=== PATIENT | male | born 1955 | race Caucasian/White ===

== ENCOUNTER 2023-04-29 13:47 | Observation (INO) | payer BC, SELFPAY ==
[2023-04-29] VITALS (9 sets, daily range): BP systolic 150–203; BP diastolic 77–105; BMI 30.5
[2023-04-29 09:19] LABS: Glucose - Point of Care 346 mg/dl (70-99)
[2023-04-29 09:48] LABS: Glucose - Point of Care 322 mg/dl (70-99)
[2023-04-29] MEDS: NSS 1000 IV (09:48)
[2023-04-29 10:22] LABS: Venous Blood Gas B.E. 5.5 mmol/L (-4 to +4); Venous Blood Gas HCO3 33.3 mmol/L (22-27); Venous Blood Gas O2 Sat % 63.2 %; Venous Blood Gas pCO2 59 mmHg (35-48); Venous Blood Gas pH 7.36 (7.32-7.43); Venous Blood Gas pO2 36 mmHg (30-50)
[2023-04-29 10:23] LABS: % Basophils 0.8 % (0-2); % Eosinophils 2.5 % (0-6); % Immature Granulocytes 0.5 % (0-0.5); % Lymphocytes 28.9 % (20.5-51.1); % Monocytes 7.5 % (1.7-9.3); % Neutrophils 59.8 % (42.2-75.2); Absolute Basophils 0.1 10^3/uL (0-0.2); Absolute Eosinophils 0.2 10^3/uL (0-0.7); Absolute Lymphocytes 1.7 10^3/uL (1.2-3.4); Absolute Monocytes 0.5 10^3/uL (0.1-0.6); Absolute Neutrophils 3.6 10^3/uL (1.4-6.5); Hematocrit 48.6 % (39.0-52.0); Hemoglobin 16.6 g/dL (13.0-18.0); Mean Corp Hgb Conc. 34.2 g/dL (33.0-37.0); Mean Corpuscular Hgb 28.3 pg (27.0-31.0); Mean Corpuscular Volume 82.9 fL (80.0-94.0); Mean Platelet Volume 11.7 fL (7.4-10.4); Nucleated Red Blood Cells % 0 % (-); Platelet Count 122 10^3/uL (130-400); Red Blood Cell Count 5.86 10^6/uL (4.70-6.10); Red Cell Dist. Width 13.4 % (11.5-14.5)
[2023-04-29 10:33] LABS: ALT (SGPT) 26 U/L (0-50); AST (SGOT) 25 U/L (17-59); Albumin 4.6 g/dl (3.5-5.0); Alkaline Phosphatase 75 U/L (38-126); Blood Urea Nitrogen 14 mg/dl (9-20); Calcium 9.6 mg/dl (8.4-10.2); Carbon Dioxide 31 mmol/L (22-30); Chloride 97 mmol/L (98-107); Estimated Creatinine Clearance > 125 ml/min; Glucose 322 mg/dl (70-99); Potassium 4.4 mmol/L (3.5-5.1); Sodium 134 mmol/L (135-145); Total Bilirubin 1.2 mg/dl (0.2-1.3); Total Protein 7.5 g/dl (6.3-8.2); eGFR > 60.00
[2023-04-29 10:40] LABS: B-Hydroxybutyrate 0.26 mmol/L (0.02-0.27)
--- NOTE | 2023-04-29 10:40 | ED.GENMED ---
History of Present Illness
General
Chief Complaint: Blood Sugar Problem
Source: patient and spouse
Exam Limitations: none
Time Seen by Provider: 04/29/23 09:24
Nursing documentation reviewed up to this point in time: agreed with
Travel History
Have you had any contact with someone who has COVID-19?: No
Do you have any symptoms of coronavirus? Fever > 100 degrees, chills, cough, shortness of breath, sore throat, loss of taste or smell, muscle aches, or headache?: No
History of Present Illness
History of Present Illness:
67-year-old male with a past medical history of diabetes he says primarily controlled with diet and exercise who presents to the emergency room for evaluation of nausea, vomiting, dizziness and hyperglycemia. Patient reports that he has been
feeling unwell for the past 2 weeks or so. He says that last Friday he woke up with dizziness and nausea and vomiting that lasted for most of the morning. He felt some mild nausea, fatigue and was having polyuria throughout the week last week.
This morning he woke up began having nausea, vomiting, dizziness and remains severely fatigued. He has been monitoring his blood sugars over the past 24 hours and they have been ranging between 275 and 350 despite no changes in his diet.
brought him to the emergency room this morning to be assessed for symptoms. He denies any significant headache. He denies any chest pain or shortness of breath. Has not had any URI type symptoms. Denies any abdominal discomfort but he does have
nausea. No diarrhea. He denies any change in his vision or speech, focal weakness or numbness in his extremities. Denies any trauma to his head. Denies any other complaints. He currently takes no medications for his diabetes.
Review of Systems
Review of Systems
All Other Systems: ROS reviewed and negative except as documented in HPI and ROS
Constitutional: Reports fatigue; Denies fever or chills
EENT: Denies sore throat or runny nose
Respiratory: Denies cough or trouble breathing
Cardiac: Denies chest pain or palpitations
ABD/GI: Reports nausea and vomiting; Denies abdominal pain or diarrhea
: Denies dysuria or flank pain
Musculoskeletal: Denies neck pain or back pain
Neurological: Reports dizzy; Denies headache, weakness or numbness
Endocrine: Reports polyuria and polydipsia
Phy Exam
Physical Exam
Physical Exam:
General: Awake, alert, oriented x3; no acute distress
Head: Normocephalic, atraumatic
Eyes: Conjunctiva normal, EOMI; he does have rightward unidirectional nystagmus
Ears: TMs clear bilaterally
Throat: Airway intact, handling secretions, mucous membranes slightly dry
Neck: Trachea midline, supple without meningismus
Lungs: Clear to auscultation bilaterally, no wheezing, rales, rhonchi
Heart: Regular rate and rhythm, no murmurs, gallops, or rubs
Abd: Soft, non distended, nontender
Neuro: Cranial nerves intact 2 through 12, speech fluid without dysarthria or aphasia, no motor or sensory deficits in extremities
Skin: no rash
Extremities: No edema in extremities, equal pulses in all extremities
Scores
NIH Stroke Score
Level of Consciousness: 0 - Alert
LOC Questions: 0-Answers both correctly
LOC Commands: 0-Performs both correctly
Best Horizontal Gaze: 0-Normal
Visual Garcia: 0=Normal, no visual loss
Facial Palsy: 0=Normal, symmetrical
Motor - Right Arm: 0=No drift 10 seconds
Motor - Left Arm: 0=No drift 10 seconds
Motor - Right Le-No drift 5 seconds
Motor - Left Le-No drift 5 seconds
Limb Ataxia: 0-Absent
Sensation: 0-Normal
Best Language: 0-No aphasia
Dysarthria: 0-Normal
Extinction and Inattention: 0-No abnormality
Total Score:: 0
Heart Failure Risk
Heart Failure Risk Score: Not Applicable
Heart Score for Chest Pain Patients
STEMI patient?: Not applicable
Withdrawal Assessment of Alcohol
Withdrawal Assessment Completed?: Not applicable
Course
Orders/Labs/Results
Orders:
Orders
04/29/23 09:25
0.9% Sodium Chloride 1000 ml [Nss] 1,000 ml IV BOLUS
04/29/23 09:40
Acetone [B-Hydroxybutyrate] Urgent
Complete Blood Count/With Diff Urgent
Comprehensive Metabolic Panel Urgent
Venous Blood Gas Urgent
%Oxygen/Room Air: 97
04/29/23 10:29
CT Head W/o Iv Contrast Urgent
Comment:
Reason For Exam: vertigo, nausea/vomiting
04/29/23 10:34
Meclizine [Antivert] 25 mg PO NOW STA
04/29/23 10:41
Ondansetron Injectable [Zofran] 4 mg IV NOW STA
04/29/23 10:43
Ondansetron Injectable [Zofran] 4 mg .ROUTE .STK-MED ONE
04/29/23 10:48
Urinalysis Reflex To Culture Urgent
Date Specimen was Collected: 04/29/23
Time Specimen was Collected: 10:35
04/29/23 11:02
Electrocardiogram (*1) Urgent
Reason for Study: Vertigo / Dizzy
Bedside Glucose- Treatment Q1H
EKG- Treatment ONCE
HydrALAZINE [Apresoline] 10 mg IV NOW STA
Insulin Aspart [NOVOLOG vial] 5 units SC NOW STA
04/29/23 12:02
COVID-19 Antigen Urgent
Source: Nasal Swab
Hemoglobin A1c [Glycohemoglobin (HgbA1c)] Urgent
Influenza A+B Rapid Molecular Urgent
MAYRA Source: Nasal Swab
Specimen Description:
04/29/23 12:33
NEUROLOGY CONSULT Urgent
Consulting Provider: Grisel Okeefe
Was physician already notified: Yes
Abnormal Lab Results
04/29/23 04/29/23 04/29/23
09:18 09:40 09:47
Plt Count 122 L 10^3/uL
(130-400)
MPV 11.7 H fL
(7.4-10.4)
VBG pCO2 59 H mmHg
(35-48)
VBG HCO3 33.3 H mmol/L
(22-27)
Sodium 134 L mmol/L
(135-145)
Chloride 97 L mmol/L
(98-107)
Carbon Dioxide 31 H mmol/L
(22-30)
Creatinine 0.6 L mg/dL
(0.7-1.3)
Glucose 322 H mg/dl
(70-99)
POC Glucose 346 H mg/dl 322 H mg/dl
(70-99) (70-99)
04/29/23 04/29/23
11:24 12:29
Plt Count
MPV
VBG pCO2
VBG HCO3
Sodium
Chloride
Carbon Dioxide
Creatinine
Glucose
POC Glucose 331 H mg/dl 330 H mg/dl
(70-99) (70-99)
04/29/23 09:40
04/29/23 09:40
Vital Signs
Initial and Last Documented VS:
Initial Vital Signs
Temp Pulse Resp BP Pulse Ox
36.6 C 79 18 203/100 97
04/29/23 09:14 04/29/23 09:14 04/29/23 09:14 04/29/23 09:14 04/29/23 09:14
Last Documented Vital Signs
Temp Pulse Resp BP Pulse Ox
36.6 C 72 18 190/83 93
04/29/23 09:14 04/29/23 11:28 04/29/23 10:15 04/29/23 11:28 04/29/23 10:15
MDM/Problems Addressed
Differential Diagnosis Includes:
Dehydration secondary to hyperglycemia, DKA, infection (sinus, ear, viral syndrome), vertigo, stroke
MDM/Problems Addressed:
67-year-old male presents for evaluation of fatigue, dizziness, nausea/vomiting over the past 2 weeks or so. Sugars have been very high over the past 24 hours. He arrives to severely hypertensive to 200/100�denies any history of hypertension.
Vital signs otherwise normal. Accu-Chek on arrival 346. Plan to place an IV check labs including CBC and CMP. Check complete hydroxybutyrate and a VBG. Will check urinalysis. Will check viral swabs. Check CT head. Provide IV fluids,
antiemetic. He does have unidirectional nystagmus exam concerning for peripheral vertigo will treat with meclizine. Monitor closely reassess after the above.
Initial labs reviewed: CBC unremarkable, CMP shows hyperglycemia but no signs of DKA, beta hydroxybutyrate normal, VBG with essentially normal pH. Remains hyperglycemic despite fluids will dose with some low-dose insulin. He remains severely
hypertensive will treat with some hydralazine. Awaiting results of CT head.
CT head negative for any acute pathology. Blood pressure improving but not normalized now down to the 170/100. Blood glucose improving but not normalized will continue to monitor closely�will hold on additional insulin as he is insulin na�ve.
Patient still severely dizzy despite meclizine. Nausea improved with Zofran. He has nystagmus even at rest is not necessarily positional and concerned given that this is new onset and a near 68-year-old with hypertension and diabetes that this
could potentially represent posterior CVA. Case discussed with neurology for consultation. At this point will admit for continued workup and management of his hypertensive urgency, hyperglycemia and continued vertiginous symptoms. Discussed with
hospitalist for admission.
Chronic conditions affecting care:
Diabetes
Acute Exacerbation and/or Progression of Chronic Illness:
Acutely hypertensive managed as above with IV hydralazine
Acutely hyperglycemic managed as above with IV fluids and insulin
Acute Exacerbation and/or Progression of Chronic Illness: DM and HTN
*Radiology
Radiology exam reviewed: radiology read reviewed
*Pulse Oximetry
Patient hypoxic: no
*EKG
Interpreted by ED Provider?: Yes
Heart Rate: 73
Rate: normal
Rhythm: sinus
[place]: normal axis
Interval: normal interval
QRS Pattern: normal QRS
Ischemia: no ischemia
*Critical Care Note
Total Time (30-74mins, 75-104mins- exclusive of procedures): Not Applicable
Data Reviewed
Source: patient and spouse
Patient Management
Discussion with other providers: Hospitalist (Discussed with hospitalist) and Hotbed Transfer Operator (Discussed with neurology)
Escalation/DeEscalation of care consider admission/obs:
Admission indicated
ED Attending Note
-
Portions of this chart may have been created with voice recognition software.� Occasional wrong word or��sound alike� substitutions may have occurred due to the inherent limitations of voice recognition software.
Discharge Plan
Departure
Patient Disposition: Admit
Date of Disposition: 04/29/23
Time of Disposition: 12:41
Admit to doctor: Abbie
Presentation/result/management discussed w/ accepting MD/DO: Hospitalist
Discharge Problem:
Hypertensive urgency, Hyperglycemia, Vertigo
Referrals:
Jl Landin DO [Family Provider] -
Interventions
Interventions:
*Risk Screen - Suicide Last Done: 04/29/23 09:40
*General Assessment Last Done: 04/29/23 09:40
*Neglect/Abuse Screening Last Done: 04/29/23 09:40
ED- Fall Risk Assessment Last Done: 04/29/23 09:35
*ED COVID-19 Vaccine History Last Done: 04/29/23 09:40
ED- Neurological Assessment Last Done: 04/29/23 09:35
[2023-04-29] MEDS: ZOFRAN 4 MG IV (10:45)
[2023-04-29 10:58] LABS: Urine Albumin Trace (Neg - Trace); Urine Bilirubin Negative (Negative); Urine Character Clear (Clear); Urine Color Yellow; Urine Glucose Negative (Negative); Urine Ketone Negative (Negative); Urine Leukocyte Negative (Negative); Urine Nitrite Negative (Negative); Urine Occult Blood Negative (Negative); Urine Specific Gravity 1.005 (<1.030); Urine Urobilinogen Negative (Neg - 1+)
[2023-04-29] MEDS: ANTIVERT 25 MG PO (11:16)
[2023-04-29 11:26] LABS: Glucose - Point of Care 331 mg/dl (70-99)
[2023-04-29] MEDS: NOVOLOG vial 5 UNITS SC (11:27)
[2023-04-29] MEDS: APRESOLINE 10 MG IV (11:28)
[2023-04-29 12:27] LABS: COVID-19 Antigen Negative (Negative)
[2023-04-29 12:33] LABS: Glucose - Point of Care 330 mg/dl (70-99)
--- NOTE | 2023-04-29 13:37 | CON.NEURO ---
Consultation
Order
CC:
HPI: This is a 67-year-old man who presented to [facility] on April 29, 2022 with dizziness. According to the patient he developed an acute continue sensation of spinning with associated nausea/ emesis
In the spells that he developed today in the morning. No reports of change in vision, ear pain, tinnitus change in speech or headache. Mr. Pope recalls transient vertigo lasting for several hours that he had 1 week ago
ER VS: 203/100, 79, 18, afebrile.
PDMP:no Rxed meds
Labs: Glucose�322, platelets�122, unremarkable urinalysis, normal WBC.
EKG: NSR, QTc Int : [address] head-right frontal�arachnoid cyst.
PMH: Right lateral cervical melanoma, HTN, DLP, DM, vit D deficiency
PSH: Melanoma resection
SH: nonsmoker; retired; independent in ADLs
FH: Mother�laryngeal cancer
All: NKDA
ROS:Constitutional: Negative. Negative for chills, fever and unexpected weight change.
HENT: Positive for for
Eyes: Negative. Negative for photophobia, pain and visual disturbance.
Respiratory: Negative for cough, choking and shortness of breath.
Cardiovascular: Negative for chest pain, palpitations and leg swelling.
Gastrointestinal: Negative for abdominal pain and vomiting.
Endocrine: Negative. Negative for cold intolerance.
Genitourinary: Negative for dysuria, flank pain and urgency.
Musculoskeletal: Negative for back pain, gait problem, neck pain and neck stiffness.
Skin: Negative for rash.
Allergic/Immunologic: Negative. Negative for immunocompromised state.
Neurological: Positive for dizziness, distal paresthesias, leg pain
Psychiatric/Behavioral: Negative for behavioral problems, confusion and hallucinations.
General: Well developed. In no acute distress.
Cardio: Regular rate and rhythm without murmur. Extremities are without cyanosis or edema.
Neuro:
Mental Status: Alert, oriented to person, place, and date. Normal attention and recall. Good fund of knowledge. Follows complex requests across the midline. Comprehension, naming, and repetition intact. Immediate and delayed recall 3/3.
Cranial Nerves: . Pupils are equally round and reactive to light. EOMs full. Visual cuenca full to confrontation. No ptosis. Horizontal nystagmus on right lateral gaze. V1-V3 intact to light touch and pinprick bilaterally, symmetric. Face
symmetric. Normal hearing AU. The palate elevated well. SCMs and traps 5/5. Tongue midline. No dysarthria.
Motor: Normal bulk and tone. No pronator or arm drift. Strength 5/5 throughout. No clonus.
Reflexes: 2+ throughout the upper extremities and 1+ knees. 1/2 in AJs. Plantar responses flexor bilaterally.
Sensory: Normal vibration and JPS.
Coordination: No dysmetria or tremor.
Gait: deferred
Assessment and Plan:
I. Hypertensive emergency
II. Probable central vertigo
III. History of melanoma
IV. Right frontal�arachnoid cyst.
-Continue Telemetry monitoring.
-Fall precautions.
-Cautious lowering of BP by approximately 15 % during the first 24 hours is SBP >220 mmHg or diastolic blood pressure >120 mmHg;
-Restart antihypertensive medications during if BP>140/90 mmHg who are neurologically stable in 24 to 48 hours after stroke onset;
-ASA 81 mg QD
-CTA head/neck
-Brain MRI with sagar
-Please check HbA1C, LDL.
-Meclizine 25 mg every 8 hours as needed
-PT.
-DVT prophylaxis.
I personally reviewed all radiology and labs along with past medical records pertinent to current medical problems.
Thank you for allowing us to participate in the care of this patient. We will continue to follow. Please do not hesitate to contact us with any questions or concerns.
Subjective/Objective
Subjective Data
Date of Service: April 29, 2023
Objective Data
Vital Signs
Temp Pulse Resp BP Pulse Ox
36.6 C 72 18 190/83 93
04/29/23 09:14 04/29/23 11:28 04/29/23 10:15 04/29/23 11:28 04/29/23 10:15
Lab Results
04/29/23 09:40
04/29/23 09:40
Sodium 134 mmol/L (135-145) L 04/29/23 09:40
Potassium 4.4 mmol/L (3.5-5.1) 04/29/23 09:40
BUN 14 mg/dl (9-20) 04/29/23 09:40
Glucose 322 mg/dl (70-99) H 04/29/23 09:40
Calcium 9.6 mg/dl (8.4-10.2) 04/29/23 09:40
Patient Allergies
No Known Allergies Allergy (Unverified 04/29/23 09:18)
Medications
-
Home Medications
Medication Instructions Recorded
cholecalciferol (vitamin D3) 25 25 mcg PO DAILY Supplement 04/29/23
mcg (1,000 unit) tablet (Vitamin
D3)
naproxen sodium 220 mg tablet 220 mg PO Q8HPRN PRN mild pain 04/29/23
(Aleve)
vitamin B complex 1 tab PO DAILY Supplement 04/29/23
vitamin E 268 mg (400 unit) capsule 268 mg PO DAILY Supplement 04/29/23
--- NOTE | 2023-04-29 13:39 | HPS.HSE ---
Addendum entered and electronically signed by Hiren Ruiz MD 04/29/23 14:50:
#Mild thrombocytopenia
watch CBC
Original Note:
Family Physician
-
Family Physician: Jl Landin
Chief Complaint
-
dizziness, HTN
History of Present Illness
67yo M with PMHX of Skin CA, DM (controlled with diet) arthritis came with elevated BP found hyperglycemia. Also c/o persistent vertigo, started this AM. ED had no concern for acute stroke since no urgent workup started. CT head unremarkable.
SImilar episode of transient vertigo 1 week ago.
Patient started not to feel good appr 1 month ago. 2 days before admission he started to wear CBGM that showing persistent hyperglycemia in 300th. Patient previously was pretty active and worked out with weights three times a week, but lately
noticed worsening asthenia
Medical History
Past Medical History
Past Medical History: Reports Other
Additional Past Medical History:
See HPI
Past Surgical History: Reports None
Social History
Unable to obtain full social history at this time due to: Dementia
Tobacco: Non-smoker
Alcohol: None
Family History
Family History: Not pertinent
Allergies / Home Medications
Allergies reflects when Allergies were last updated in [facility].
Home Medications with original date entered in [facility]
Allergy/Medication List:
Allergies
Allergy/AdvReac Type Severity Reaction Status Date / Time
No Known Allergies Allergy Unverified 04/29/23 09:18
Home Medications
cholecalciferol (vitamin D3) 25 mcg (1,000 unit) tablet (Vitamin D3) 25 mcg PO DAILY Supplement 04/29/23
naproxen sodium 220 mg tablet (Aleve) 220 mg PO Q8HPRN PRN mild pain 04/29/23
vitamin B complex 1 tab PO DAILY Supplement 04/29/23
vitamin E 268 mg (400 unit) capsule 268 mg PO DAILY Supplement 04/29/23
Review of Systems
-
History Source: Patient
A 12 point ROS was completed and negative except as noted: Yes
Neurological: Reports See HPI
Physical Exam
Vital Signs
Vital Signs
Temp Pulse Resp BP Pulse Ox
97.8 F 72 18 190/83 93
04/29/23 09:14 04/29/23 11:28 04/29/23 10:15 04/29/23 11:28 04/29/23 10:15
Physical Exam
General: Well Developed, Well Nourished and No Apparent Distress
HEENT: NormoCephalic and Moist mucous membranes
Respiratory: Clear; No Wheezes, Rales or Rhonchi
Cardiac: S1/S2 and Regular Rhythm
GI: Soft, Non Tender and Non Distended
Musculoskeletal: No Clubbing, No Cyanosis and No Edema
Skin: Warm
Neuro: Awake, Alert, Oriented and AO x 3
Hematologic/Lymphatic: No Lymphadenopathy
Psych: Calm
Laboratory Results
-
04/29/23 09:40
04/29/23 09:40
Laboratory Results
Total Bilirubin 1.2 mg/dl (0.2-1.3) 04/29/23 09:40
AST 25 U/L (17-59) 04/29/23 09:40
ALT 26 U/L (0-50) 04/29/23 09:40
Alkaline Phosphatase 75 U/L (38-126) 04/29/23 09:40
Impression/Plan
-
A/P:
#Hypertensive emergency with hyperglycemia
Start on Nifedipine/Lisinopril low doses and target BP drop of 25-30% over the next 24h to allow permissive HTN in view of vertigo and concern for TIA/CVA
HgbA1c pending
Insulin SS, Acucchecks, DM diet
check TSH, Lipids
#Vertigo, recurrent
Unclear onset of the symptoms
ASA, statin
Neurochecks
MRI/MRA head and neck
Echo
telemetry
Neurology cosnult
DVT ppx lovenox
Full code
I have spent at least 76 min admitting the patient, reviewing results of the tests, communication to family and direct patient care
[2023-04-29 13:47] LABS: Glucose - Point of Care 270 mg/dl (70-99)
[2023-04-29 14:07] LABS: Glycohemoglobin (HgbA1c) 12.7 % (4.0-5.6)
[2023-04-29] MEDS: ASPIRIN 325 MG PO (14:18)
[2023-04-29 14:48] LABS: Glucose - Point of Care 275 mg/dl (70-99)
--- NOTE | 2023-04-29 15:00 | EDRN ---
Patient taken to room 339-1 on monitor on stretcher by cardiopulmonary technician and eeg tech.
--- NOTE | 2023-04-29 16:00 | PTCARENOTE ---
pt admitted from ED. CT and MRI immediately called for pt. this nurse assessed and completed admission prior to departure. Pt is AOx3, denies pain. NSR, LCTA B/L on RA. cont B&B last BM this AM. dexicomp on RUE. skin CDI, no edema, +PP.
[2023-04-29 16:25] LABS: INR 1.01; PT 13.1 Sec (11.4-14.6)
[2023-04-29 16:26] LABS: APTT 24.3 Sec (23.4-35.0)
[2023-04-29] MEDS: LIPITOR 80 MG PO (18:21)
[2023-04-29] MEDS: HEPARIN 5000 UNITS SC ×2 (18:21→23:52)
[2023-04-29 18:27] LABS: Glucose - Point of Care 213 mg/dl (70-99)
[2023-04-29] MEDS: NOVOLOG FLEXPEN-MODERATE RESISTANCE 3 UNITS SC (19:26)
[2023-04-29 21:44] LABS: Glucose - Point of Care 249 mg/dl (70-99)
[2023-04-30] VITALS (8 sets, daily range): BP systolic 104–157; BP diastolic 64–89; PULSE 87; O2SAT 95
[2023-04-30 06:18] LABS: % Basophils 0.5 % (0-2); % Eosinophils 1.8 % (0-6); % Immature Granulocytes 0.2 % (0-0.5); % Lymphocytes 34.4 % (20.5-51.1); % Monocytes 8.5 % (1.7-9.3); % Neutrophils 54.6 % (42.2-75.2); Absolute Eosinophils 0.1 10^3/uL (0-0.7); Absolute Lymphocytes 2.1 10^3/uL (1.2-3.4); Absolute Monocytes 0.5 10^3/uL (0.1-0.6); Absolute Neutrophils 3.3 10^3/uL (1.4-6.5); Hematocrit 44.6 % (39.0-52.0); Hemoglobin 15.2 g/dL (13.0-18.0); Mean Corp Hgb Conc. 34.1 g/dL (33.0-37.0); Mean Corpuscular Hgb 28.5 pg (27.0-31.0); Mean Corpuscular Volume 83.7 fL (80.0-94.0); Mean Platelet Volume 11.6 fL (7.4-10.4); Nucleated Red Blood Cells % 0 % (-); Platelet Count 120 10^3/uL (130-400); Red Blood Cell Count 5.33 10^6/uL (4.70-6.10); Red Cell Dist. Width 13.4 % (11.5-14.5); White Blood Cell Count 6.1 10^3/uL (4.8-10.8)
[2023-04-30 06:50] LABS: Blood Urea Nitrogen 13 mg/dl (9-20); Calcium 8.9 mg/dl (8.4-10.2); Carbon Dioxide 29 mmol/L (22-30); Chloride 102 mmol/L (98-107); Estimated Creatinine Clearance 119 ml/min; Glucose 214 mg/dl (70-99); HDL Cholesterol 31 mg/dl; LDL Cholesterol, Calculated 137 mg/dl; Magnesium 1.7 mg/dl (1.6-2.3); Potassium 3.9 mmol/L (3.5-5.1); Sodium 135 mmol/L (135-145); Total Cholesterol 211 mg/dl (50-199); Triglyceride 216 mg/dl (10-149); Very Low Density Lipoprotein 43 mg/dl (0-30); eGFR > 60.00
[2023-04-30 07:12] LABS: TSH Reflex To Free T4 1.46 uIU/ml (0.47-4.68)
--- NOTE | 2023-04-30 08:24 | W.PN.NEURO.1 ---
Documented by User: Bushra Garcia NP 04/30/23 10:45
Today's Communication / Plan
-
.
Neuro Assessment/Plan
Assessment
This is a 67-year-old man who presented to on 04/29/23 with report of dizziness.� According to the patient he developed an acute continue sensation of spinning with associated nausea/ emesis. He recalls transient vertigo lasting for several hours
that he had 1 week ago.
ER VS: 203/100, 79, 18, afebrile.
Labs: Glucose�322, platelets�122, unremarkable urinalysis, normal WBC.
CT head 04/29/23: Right frontal�arachnoid cyst.
CTA head/neck 04/29/23: No CTA evidence for high-grade stenosis or occlusion of the arterial vasculature of the head or neck.
MRI brain 04/29/23: �No evidence of acute intracranial abnormality. Right superior paramedian arachnoid cyst arising in the posterior right frontal region. Mild diffuse atrophy in this 67-year-old patient. Minimal T2 and FLAIR white matter
hyperintensities, commonly seen with aging and usually attributed to small vessel ischemic disease. No evidence for intracranial metastatic disease.
I.� Hypertensive emergency
II.� Uncontrolled diabetes mellitus
III.� Vertigo. MRI brain negative for central source of vertigo. Likely due to hypertensive emergency and elevated blood glucose.
IV. History of melanoma
V. Right frontal�arachnoid cyst.
Plan
-Would continue aspirin 81mg daily indefinitely due to significant risk factors for stroke.
-Cautious lowering of BP by approximately 15 % during the first 24 hours is SBP >220 mmHg or diastolic blood pressure >120 mmHg;
-Restart antihypertensive medications during if BP>140/90 mmHg who are neurologically stable� in 24 to 48 hours after stroke onset;
-Neurological checks per unit guidelines. Okay to discontinue NIHSS. Patient provided with a stroke education packet.
-LDL goal <70. LDL is 137. Continue atorvastatin 80mg daily.
-Goal normoglycemia, hbA1c is 12.7. assistant business manager consult placed.
-PT/OT evaluations.
-DVT prophylaxis.
-Will sign-off. Please contact our Neurology service with any questions/concerns. Patient can follow-up with Neurology as an outpatient as-needed.
Subjective/Objective
Subjective Data
Date of Service: April 30, 2023
No acute events overnight. Patient reports feeling improved today, he is no longer having dizziness. He endorses worsened blurry vision which he reports started several months ago. He denies any headache, speech/swallowing difficulty, numbness,
weakness, nausea, chest pain, palpitations, and shortness of breath.
Objective Data
Vital Signs
Temp Pulse Resp BP Pulse Ox
98.2 F 88 18 134/75 97
04/30/23 03:35 04/30/23 03:35 04/30/23 03:35 04/30/23 03:35 04/30/23 03:35
Lab Results
04/30/23 05:03
04/30/23 05:03
PT 13.1 Sec (11.4-14.6) 04/29/23 15:51
INR 1.01 04/29/23 15:51
APTT 24.3 Sec (23.4-35.0) 04/29/23 15:51
Sodium 135 mmol/L (135-145) 04/30/23 05:03
Potassium 3.9 mmol/L (3.5-5.1) 04/30/23 05:03
BUN 13 mg/dl (9-20) 04/30/23 05:03
Glucose 214 mg/dl (70-99) H 04/30/23 05:03
Calcium 8.9 mg/dl (8.4-10.2) 04/30/23 05:03
LDL Cholesterol, Calc 137 mg/dl 04/30/23 05:03
Patient Allergies
No Known Allergies Allergy (Unverified 04/29/23 09:18)
LDL Level: >70, statin ordered
Review of Systems
-
History Source: Patient
EENT: Blurry Vision; Negative Decreased Vision or Swallowing Difficulty
Respiratory: Negative Cough or Trouble Breathing
Cardiac: Negative Palpitations
Abdomen/GI: Negative Nausea
Genitourinary: Negative Difficulty Voiding
Neuro: Negative Dizzy, Headache, Weakness, Numbness, Ataxia, Tremors or Speech Problem
Physical Exam
-
General: No Apparent Distress
Eyes: No Ptosis and PERRLA
HEENT: Normocephalic and Atraumatic
Neck: Full Range of Motion
Respiratory: No Dyspnea
GI: Non-distended
Extremities: No Clubbing, No Cyanosis and No Edema
Psych: Unremarkable
Extended Neurological Exam
Mood & Affect: Mood Unremarkable and Affect Unremarkable
Attention Span & Concentration: Awake, Alert, Interactive and No Difficulty with 2 Step Request
Memory: Unremarkable (AAOx3) and Able to Recall
Tremor: Hand Tremor Absent and Head Tremor Absent
Involuntary Movement: None
Speech: Quality Unremarkable, Quantity Unremarkable and Rate of Production Unremarkable
Cranial Nerve II: Left Eye: Pupillary Reactivity Unremarkable, Pupillary Size Unremarkable and Visual Garcia Intact
Cranial Nerve II: Right Eye: Pupillary Reactivity Unremarkable, Pupillary Size Unremarkable and Visual Garcia Intact
Cranial Nerves III, IV, : Extraocular Movement: Extraocular Movement Full in all Directions
Cranial Nerve V: Facial Sensation: Intact to Light Touch
Cranial Nerve VII: Facial Symmetry: Normal Facial Symmetry
Cranial Nerve VIII: Hearing: Unremarkable Hearing to Normal Conversational Volume
Cranial Nerves IX, X: Palate Movement: Palate Elevation Symmetric
Cranial Nerve XI: Shoulder Shrug: Unremarkable
Cranial Nerve XII: Tongue Protusion: Midline
Muscle Strength, Overall: Full Throughout
Muscle Bulk & Tone: Bulk Unremarkable and Tone Unremarkable
Pronator Drift: No Drift in Upper Extremities and No Drift in Lower Extremities
Deep Tendon Reflexes: Unremarkable Throughout
Cold Sensation: Unremarkable
Vibration Sensation: Unremarkable
Touch Sensation: Double Simultaneous Stimulation Unremarkable
Coordination: Xwbyhm-[id number]-[id number] Testing Unremarkable
Babinski Sign: Absent Bilaterally
Gait & Station: Up from Seated Without Problem
Data Reviewed
-
CT-A: Report Reviewed and Image Reviewed
CT Head: Report Reviewed and Image Reviewed
MRI Head: Report Reviewed and Image Reviewed
Labs: Report Reviewed
Lipid Profile: Report Reviewed
HgbA1C: Report Reviewed
Reviewed with: Physician, Patient and Family

Documented by User: Grisel Okeefe MD 04/30/23 12:25
Neuro Assessment/Plan
Assessment
This is a 67-year-old man who presented to on 04/29/23 with report of dizziness.� According to the patient he developed an acute continue sensation of spinning with associated nausea/ emesis. He recalls transient vertigo lasting for several hours
that he had 1 week ago.
ER VS: 203/100, 79, 18, afebrile.
Labs: Glucose�322, platelets�122, unremarkable urinalysis, normal WBC.
CT head 04/29/23: Right frontal�arachnoid cyst.
CTA head/neck 04/29/23: No CTA evidence for high-grade stenosis or occlusion of the arterial vasculature of the head or neck.
MRI brain 04/29/23: �No evidence of acute intracranial abnormality. Right superior paramedian arachnoid cyst arising in the posterior right frontal region. Mild diffuse atrophy in this 67-year-old patient. Minimal T2 and FLAIR white matter
hyperintensities, commonly seen with aging and usually attributed to small vessel ischemic disease. No evidence for intracranial metastatic disease.
I.� Hypertensive emergency
II.� Uncontrolled diabetes mellitus
III.� Vertigo, likely peripheral.
IV. History of melanoma
V. Right frontal�arachnoid cyst.
Plan
-Fall precautions
-Continue ASA 81mg QD
-LDL goal <70. LDL is 137. Continue atorvastatin 80 mg daily.
-Goal normoglycemia, hbA1c is 12.7. assistant business manager consult placed.
-PT
-Meclizine PRN
-ENT consult
-OP neurology follow up
-DVT prophylaxis.
-Please recall Neurology service with any questions/concerns. Patient should follow-up with Neurology as an outpatient.
[2023-04-30 08:55] LABS: Glucose - Point of Care 252 mg/dl (70-99)
[2023-04-30] MEDS: ZESTRIL 10 MG PO (09:02)
[2023-04-30] MEDS: LOW STRENGTH ASPIRIN 81 MG PO (09:02)
[2023-04-30] MEDS: PROCARDIA XL (EXTENDED RELEASE) 30 MG PO (09:02)
[2023-04-30] MEDS: HEPARIN 5000 UNITS SC (09:02)
[2023-04-30 09:49] LABS: Vitamin D, 25-OH*** 19.1 ng/mL (30-80)
[2023-04-30] MEDS: NOVOLOG FLEXPEN-MODERATE RESISTANCE 5 UNITS SC (10:04)
--- NOTE | 2023-04-30 11:50 | W.PN.HOSP.TC ---
Today's Communication/Plan
-
watch sugars
Assessment / Plan
Assessment / Plan
67-year-old male with dizziness. Patient has a history of diabetes years ago he was supposed to be on medicines however he stopped taking them he was admitted with persistent vertigo and admitted for stroke workup which turns out to be negative. 2
days prior to admission he was wearing a CGM which was showing persistent hyperglycemia in the 300 range.
CVS: S1-S2 normal
Chest: CTA B/L
Abdomen: Soft, NT / Bowel sounds present
Extremities: No edema, normal pulses
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
#Hypertensive urgency-Nifedipine and Lisinopril started
# Vertigo-MRI negative for stroke likely secondary to hypertensive urgency or peripheral vertigo
# Poorly controlled diabetes secondary to noncompliance with medicines
Ideally patient would be better with insulin given this A1c
He does not want insulin.
Therefore start Jardiance, metformin, sulfonylurea and Januvia.
Dietary education
# History of melanoma
# Right frontal arachnoid cyst
# Obesity-BMI 30
Needs to lose weight especially with diabetes
# Mild thrombocytopenia
# Vitamin D deficiency-replace
# DVT prophylaxis-Lovenox
# Full code
Discussed with Mitali Yoder
D/W at bed side
Discussed with the patient regarding care for diabetes. Dietary evaluation
Anticipated Discharge: Within 24 hours
Subjective/Interval History
-
Date of Service: April 30, 2023
Objective Data
-
Labs:
Laboratory Results
04/30/23
05:03
WBC 6.1
Hgb 15.2
Hct 44.6
Plt Count 120 L
Sodium 135
Potassium 3.9
Chloride 102
Carbon Dioxide 29
BUN 13
Creatinine 0.7
Glucose 214 H
Calcium 8.9
Vital Signs:
Vital Signs
Temp Pulse Resp BP Pulse Ox
98.6 F 87 16 157/89 100
04/30/23 07:00 04/30/23 07:00 04/30/23 07:00 04/30/23 07:00 04/30/23 08:28
I&O
04/29/23 04/30/23 05/01/23
06:59 06:59 06:59
Intake Total 960 / 960
Balance 960 / 960
--- NOTE | 2023-04-30 11:51 | PN.DE.MGMTRT ---
Insulin Management
- -
04/30/2023 Diabetes Management Consult
Patient admitted with HTN crisis and hyperglycemia. PMH Melanoma, type 2 diabetes for 10 years. Had been order Jardiance and metformin in the past but stopped them 'many years ago'. Patient states he did attend outpatient diabetes classes about
10 years ago but has been very lax and not exercised or followed any diet for quite a while.
He recently saw his primary doctor who gave him a Yessy sample but it had to be removed for MRI. He does have several working glucose monitors at home.
A1C on admission 12.7%, cr .7, egfr >60.
Discussed with patient importance of glucose control and need to start medications or insulin. He is agreeable to starting oral meds. Will start Jardiance 25 mg now and daily, metformin 500 mg now and BID, Januvia 100 mg now and daily, and
glipizide 5 mg now and BID. Discussed with Dr. Sotelo.
Diabetes History
- -
Type of Diabetes: 2
Pre-Admission Diabetes Regimen
04/30/23
05:03
Creatinine 0.7
Lab Results
Hemoglobin A1c 12.7 % (4.0-5.6) H 04/29/23 12:02
Insulin Pump Settings
IP Diabetes Regimen
04/29/23 04/29/23 04/29/23
12:29 13:46 14:46
Glucose
POC Glucose 330 H 270 H 275 H
04/29/23 04/29/23 04/30/23
18:26 21:43 05:03
Glucose 214 H
POC Glucose 213 H 249 H
04/30/23
08:54
Glucose
POC Glucose 252 H
Patient Education
[2023-04-30 12:19] LABS: Glucose - Point of Care 231 mg/dl (70-99)
[2023-04-30] MEDS: JANUVIA 100 MG PO (12:44)
[2023-04-30] MEDS: JARDIANCE 25 MG PO (12:45)
[2023-04-30] MEDS: GLUCOPHAGE 500 MG PO ×2 (12:45→17:05)
[2023-04-30] MEDS: GLUCOTROL 5 MG PO ×2 (13:11→17:05)
[2023-04-30] MEDS: MAGNESIUM OXIDE 500 MG PO (13:11)
[2023-04-30] MEDS: DRISDOL (VITAMIN D2) 50000 UNITS PO (13:11)
[2023-04-30] MEDS: NOVOLOG FLEXPEN-MODERATE RESISTANCE 3 UNITS SC (13:13)
[2023-04-30 14:28] LABS: Vitamin B12 349 pg/ml (239-931)
--- NOTE | 2023-04-30 16:29 | CM ---
Alert awake oriented patient who lives with his Allegra who lives in a 4 story home with 14 step to enter and bed and bathroom on first floor. He is independent in driving and in all activities of daily living.He was offered VN he declined
need.Observation letter given Copy signed on chart.
No VN/SNF history
Pharmacy [facility]
PCP DR Landin
PLAN Home Declined VN
[2023-04-30 17:01] LABS: Glucose - Point of Care 165 mg/dl (70-99)
[2023-04-30] MEDS: LIPITOR 40 MG PO (17:05)
[2023-04-30] MEDS: NOVOLOG FLEXPEN-MODERATE RESISTANCE 1 UNITS SC (17:06)
[2023-04-30] MEDS: LOVENOX 40 MG SC (17:06)
[2023-04-30 21:11] LABS: Glucose - Point of Care 97 mg/dl (70-99)
[2023-05-01 03:00] VITALS: BP 147/71
[2023-05-01 07:00] VITALS: BP 125/75
[2023-05-01 08:02] LABS: Glucose - Point of Care 108 mg/dl (70-99)
[2023-05-01] MEDS: PROCARDIA XL (EXTENDED RELEASE) 30 MG PO (08:30)
[2023-05-01] MEDS: GLUCOTROL 5 MG PO (08:31)
[2023-05-01] MEDS: MAGNESIUM OXIDE 500 MG PO (08:31)
[2023-05-01] MEDS: VITAMIN B-12 1000 MCG PO (08:31)
[2023-05-01] MEDS: VITAMIN D3 (cholecalciferol) 25 MCG PO (08:31)
[2023-05-01] MEDS: LOW STRENGTH ASPIRIN 81 MG PO (08:31)
[2023-05-01] MEDS: JANUVIA 100 MG PO (08:31)
[2023-05-01] MEDS: ZESTRIL 10 MG PO (08:31)
[2023-05-01] MEDS: GLUCOPHAGE 500 MG PO (08:31)
[2023-05-01] MEDS: NOVOLOG FLEXPEN-MODERATE RESISTANCE SC ×2 (08:32→12:33)
[2023-05-01] MEDS: JARDIANCE 25 MG PO (08:32)
--- NOTE | 2023-05-01 08:40 | PN.DE.MGMTRT ---
Insulin Management
- -
04/30/2023 Diabetes Management Consult
Patient admitted with HTN crisis and hyperglycemia. PMH Melanoma, type 2 diabetes for 10 years. Had been order Jardiance and metformin in the past but stopped them 'many years ago'. Patient states he did attend outpatient diabetes classes about
10 years ago but has been very lax and not exercised or followed any diet for quite a while.
He recently saw his primary doctor who gave him a Yessy sample but it had to be removed for MRI. He does have several working glucose monitors at home.
A1C on admission 12.7%, cr .7, egfr >60.
Discussed with patient importance of glucose control and need to start medications or insulin. He is agreeable to starting oral meds. Will start Jardiance 25 mg now and daily, metformin 500 mg now and BID, Januvia 100 mg now and daily, and
glipizide 5 mg now and BID. Discussed with Dr. Sotelo.
05/01/2023 Diabetes Management Follow up
Patient glucose gending 213 to 322 since admission, A1C 12.7%. Jardiance, Januvia, glipizide and metformin started yesterday ~ 12:45pm. Glucose pre dinner 165 and HS 97. Fasting this AM 108. Will continue oral medication Jardiance 25 mg daily,
Januvia 100 mg daily, glipizide 5 mg BID, metformin 500 mg BID.
Diabetes History
- -
Type of Diabetes: 2
Pre-Admission Diabetes Regimen
Lab Results
Hemoglobin A1c 12.7 % (4.0-5.6) H 04/29/23 12:02
Insulin Pump Settings
IP Diabetes Regimen
04/30/23 04/30/23 04/30/23
08:54 12:17 16:59
POC Glucose 252 H 231 H 165 H
04/30/23 05/01/23
21:10 08:00
POC Glucose 97 108 H
Meal type: Lunch
Meal type: Breakfast
Amount consumed: 100%
Amount consumed: 100%
Patient Education
[2023-05-01 11:00] VITALS: BP 141/79
[2023-05-01 12:31] LABS: Glucose - Point of Care 117 mg/dl (70-99)
--- NOTE | 2023-05-01 13:20 | W.PN.HOSP.TC ---
Today's Communication/Plan
-
Discharge , OP F/U
Assessment / Plan
Assessment / Plan
67-year-old male with dizziness. Patient has a history of diabetes years ago he was supposed to be on medicines however he stopped taking them he was admitted with persistent vertigo and admitted for stroke workup which turns out to be negative. 2
days prior to admission he was wearing a CGM which was showing persistent hyperglycemia in the 300 range.
CVS: S1-S2 normal
Chest: CTA B/L
Abdomen: Soft, NT / Bowel sounds present
Extremities: No edema, normal pulses
HEALTH OUTCOMES LIAISON: Non focal eexam
#Hypertensive urgency-Nifedipine and Lisinopril started. Blood pressure stable now
# Vertigo-MRI negative for stroke likely secondary to hypertensive urgency or peripheral vertigo
# Poorly controlled diabetes secondary to noncompliance with medicines
Ideally patient would be better with insulin given this A1c
He does not want insulin.
Therefore start Jardiance, metformin, sulfonylurea and Januvia.
Dietary education appreciated
Patient is aware to watch for hypoglycemia in the next 1 week because all his medicines are new his is also aware about signs of hypoglycemia and electrolyte.
# History of melanoma
# Right frontal arachnoid cyst
# Obesity-BMI 30
Needs to lose weight especially with diabetes
# Mild thrombocytopenia
# Vitamin D deficiency-replace
# DVT prophylaxis-Lovenox
# Full code
Discussed with Mitali Yoder
D/W at bed side
Discussed with the patient regarding care for diabetes.
Discharge time 31 minutes
Anticipated Discharge: Today
Subjective/Interval History
-
Date of Service: May 01, 2023
Objective Data
-
Vital Signs:
Vital Signs
Temp Pulse Resp BP Pulse Ox
97.3 F 88 20 141/79 97
05/01/23 11:00 05/01/23 11:00 05/01/23 11:00 05/01/23 11:00 05/01/23 12:04
I&O
04/30/23 05/01/23 05/02/23
06:59 06:59 06:59
Intake Total 960 / 960 1420 / 1420
Balance 960 / 960 1420 / 1420
--- NOTE | 2023-05-01 13:22 | W.DS.TRANS ---
Addendum entered and electronically signed by Elijah Sotelo MD 05/01/23 15:23:
Dictation- [id number]
Original Note:
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
-
Discharge Instructions:
Discharge Diagnosis/Procedures Vertigo, poorly controlled diabetes,
hypertension, high cholesterol, slightly low
platelets, Vit D Defeciency, low normal B12
Diet 2 Gram Sodium,Diabetic, Carb Controlled
Activity As tolerated
Driving Restrictions As prior to admission
Blood Work Hemoglobin A1c in 3 months. cbc, BMP 1 week
Lipid panel and liver tests in 3 months
Stop these medications: Stop Aleve
Instructions:
Stand-Alone Forms:
Changes to Home Medications: Yes
Discharge Medications:
DC Medications w/original date entered in [employer]
cholecalciferol (vitamin D3) 25 mcg (1,000 unit) tablet (Vitamin D3) 25 mcg PO DAILY Supplement 04/29/23
vitamin B complex 1 tab PO DAILY Supplement 04/29/23
aspirin 81 mg chewable tablet (Children's Aspirin) 81 mg PO DAILY Blood clot prevention/tx #0 tabs 04/30/23
atorvastatin 40 mg tablet 40 mg PO QPM High cholesterol #30 tabs 04/30/23
cyanocobalamin (vitamin B-12) 1,000 mcg tablet 1,000 mcg PO DAILY Supplement #30 tabs 04/30/23
empagliflozin 25 mg tablet (Jardiance) 25 mg PO DAILY Diabetes #30 tabs 04/30/23
glipizide 5 mg tablet 5 mg PO BID@0800,1700 Diabetes #60 tabs 04/30/23
lisinopril 10 mg tablet 10 mg PO DAILY Blood pressure #30 tabs 04/30/23
magnesium oxide 500 mg PO DAILY Supplement #0 tabs 04/30/23
metformin 500 mg tablet 500 mg PO BID@0800,1700 Diabetes #120 tabs 04/30/23
nifedipine 30 mg tablet,extended release 30 mg PO DAILY Blood pressure #30 tabs 04/30/23
sitagliptin phosphate 100 mg tablet (Januvia) 100 mg PO DAILY Diabetes #30 tabs 04/30/23
Home Medication Changes
new
cholecalciferol (vitamin D3) 25 mcg (1,000 unit) tablet (Vitamin D3) 25 mcg PO DAILY Supplement 04/29/23
aspirin 81 mg chewable tablet (Children's Aspirin) 81 mg PO DAILY Blood clot prevention/tx #0 tabs 04/30/23
atorvastatin 40 mg tablet 40 mg PO QPM High cholesterol #30 tabs 04/30/23
cyanocobalamin (vitamin B-12) 1,000 mcg tablet 1,000 mcg PO DAILY Supplement #30 tabs 04/30/23
empagliflozin 25 mg tablet (Jardiance) 25 mg PO DAILY Diabetes #30 tabs 04/30/23
glipizide 5 mg tablet 5 mg PO BID@0800,1700 Diabetes #60 tabs 04/30/23
lisinopril 10 mg tablet 10 mg PO DAILY Blood pressure #30 tabs 04/30/23
magnesium oxide 500 mg PO DAILY Supplement #0 tabs 04/30/23
metformin 500 mg tablet 500 mg PO BID@0800,1700 Diabetes #120 tabs 04/30/23
nifedipine 30 mg tablet,extended release 30 mg PO DAILY Blood pressure #30 tabs 04/30/23
sitagliptin phosphate 100 mg tablet (Januvia) 100 mg PO DAILY Diabetes #30 tabs 04/30/23
Pending Results: No
--- NOTE | 2023-05-01 13:33 | CM ---
MD entered order for discharge.
Spoke with patient he said he is ready frdc.
Allegra will drive him home .
DM educator saw pt .
Offered Vn he declined need
PLAN Home no needs
== END 2023-05-01 14:49 | disposition home or self-care (01) ==
LOC: 3 WEST ACU 13:47
PROVIDERS: ADMITTING PHYSICIAN Internal Medicine; ATTENDING PHYSICIAN Hospitalist; CONSULT PHYSICIAN Psychiatry & Neurology Neurology; EMERGENCY PHYSICIAN Emergency Medicine; FAMILY PHYSICIAN Family Medicine
DX: R42 Dizziness and giddiness (principal); R11.2 Nausea with vomiting, unspecified; E11.65 Type 2 diabetes mellitus with hyperglycemia; R35.89 Other polyuria; R53.83 Other fatigue; G93.0 Cerebral cysts; H53.8 Other visual disturbances; E66.9 Obesity, unspecified; E78.00 Pure hypercholesterolemia, unspecified; I16.0 Hypertensive urgency; I10 Essential (primary) hypertension; D69.6 Thrombocytopenia, unspecified; E55.9 Vitamin D deficiency, unspecified; Z85.820 Personal history of malignant melanoma of skin; Z79.82 Long term (current) use of aspirin; Z11.52 Encounter for screening for COVID-19; Z68.30 Body mass index [BMI] 30.0-30.9, adult; Z91.148 Patient's other noncompliance with medication regimen for other reason; Z79.84 Long term (current) use of oral hypoglycemic drugs
CPT/HCPCS: 70450; 70496; 70498; 70553; 80048; 80053; 80061; 81003; 82010; 82306; 82607; 82805; 82962; 83036; 83735; 84443; 85025; 85610; 85730; 87502; 87811; 93005; 93306; 96361; 96372; 96374; 96375; 97161; 97166; 99285; A9575; G0378; Q9967

== ENCOUNTER 2024-02-15 14:12 | Inpatient (IN) | payer BC, MEDICARE, SELFPAY ==
[2024-02-15] VITALS (16 sets, daily range): BP systolic 115–225; BP diastolic 75–135; BMI 29.0
--- NOTE | 2024-02-15 10:17 | ED.GENMED ---
History of Present Illness
General
Chief Complaint: Blood Pressure Problem
Time Seen by Provider: 02/15/24 10:17
History of Present Illness
History of Present Illness:
TIME OF INITIAL ENCOUNTER: 10:30 AM
HPI: Over the last couple days, the patient is had some loose stools associated with nausea and vomiting. Denies any significant diarrhea. He vomited several times a day and took his blood pressure was very high. He stopped taking his blood
pressure medication (lisinopril uncertain dose) because he had lower extremity edema. He has an associated rather significant headache�does not normally get headaches. The patient did report some shortness of breath recently but none currently.
EXAM:
GENERAL: Well appearing in no distress
HEENT: Moist oral mucosa
CARDIOVASCULAR: No murmurs, normal heart rate, regular rhythm, No chest wall tenderness
PULMONARY: No respiratory distress, breath sounds are clear and equal
ABDOMEN: Soft with no peritoneal signs, no tenderness
NEUROLOGIC: Excellent strength all extremities, no coordination deficits
PSYCHIATRIC: Appropriate mental status, normal insight and judgement
EXTREMITIES: Nontender, no edema, moves all extremities equally
SKIN: No rash, no lesions
NUMBER AND COMPLEXITY OF PROBLEMS ADDRESSED AT THE ENCOUNTER
� Chronic conditions affecting care: High blood pressure, diabetes
� Acute Exacerbation and/or Progression of Chronic Illness: This is an acute problem
� Differential Diagnosis includes: Acute viral syndrome, uncontrolled high blood pressure, bowel pathology, diabetic gastroparesis
AMOUNT AND/OR COMPLEXITY OF DATA TO BE REVIEWED AND ANALYZED
� I performed an independent evaluation of and my interpretation is:
EKG: Sinus 102, nonspecific ST abnormality
CT: CT head shows no acute abnormality; 9 mm stone in the proximal left ureter is noted and additional slightly smaller distal stone noted.
X-rays: Chest x-ray personally reviewed and agree with radiologist interpretation that there is some degree of mild pulmonary edema
Laboratory Studies: Creatinine 2.0 which is new, BNP over 7000, CBC unremarkable
Other:
� Review of other/old records: I reviewed records. The patient was admitted here in April after the 24 with vertigo and poorly controlled blood sugars. At that time there was no sign of stroke based on MRI. Records indicate
that he was placed on nifedipine and last admission
� Clinical information was obtained by an independent historian: I spoke to family member at bedside
� Prescriptions/Medications Considered but not given:
� Further testing considered but not performed:
RISK OF COMPLICATIONS AND/OR MORBIDITY OR MORTALITY OF PATIENT MANAGEMENT
� Social determinants of health affecting care: Lives at home
� Discussion with other providers: I notified Dr. Cobb of the patient's abnormality seen on CT. Hospitalist, Dr. Carty for admission.
� Escalation of care including admission/observation vs risk of discharge considered: Initial blood pressure 220 systolic, repeat 213 systolic. The patient has an associated headache. I have ordered a one-time dose of labetalol
10 mg IV.
ANY OTHER UPDATES:
1:[address] imaging does show 2 ureteral stones proximally and large. Dr. Cobb planning in for OR tomorrow.
Phy Exam
Physical Exam
Physical Exam:
See HPI
Course
Orders/Labs/Results
Orders:
Orders
02/15/24 10:22
CMP [Comprehensive Metabolic Panel] Urgent
Complete Blood Count/With Diff Urgent
Pro-BNP [NT-proBNP] Urgent
02/15/24 10:29
Labetalol HCl [Trandate] 10 mg IV NOW STA
02/15/24 10:30
Electrocardiogram (*1) Urgent
Reason for Study: Hypertension, Benign
CT Abd/pelvis W Iv Cont Urgent
Comment:
Reason For Exam: recurrent vomiting cannot martha po
CT Head W/o Iv Contrast Urgent
Comment:
Reason For Exam: severe HTN, severe DAVIS
EKG- Treatment ONCE
02/15/24 10:50
0.9% Sodium Chloride 500 ml [Nss] 500 ml IV BOLUS
02/15/24 11:09
Labetalol HCl [Trandate] 10 mg IV NOW STA
02/15/24 12:14
Labetalol HCl [Trandate] 10 mg IV NOW STA
02/15/24 13:10
0.9% Sodium Chloride 1000 ml [Nss] 1,000 ml IV BOLUS
02/15/24 13:16
CR Chest - 2 Views Urgent
Comment:
Reason For Exam: sob high BNP
02/15/24 13:29
Urinalysis Reflex To Culture Urgent
Date Specimen was Collected: 02/15/24
Time Specimen was Collected: 13:30
Abnormal Lab Results
02/15/24
10:22
Plt Count 99 L 10^3/uL
(130-400)
MPV 11.0 H fL
(7.4-10.4)
Absolute Lymphs (auto) 0.7 L 10^3/uL
(1.2-3.4)
Neutrophils % 84.2 H %
(42.2-75.2)
Lymphocytes % 9.5 L %
(20.5-51.1)
BUN 45 H mg/dl
(9-20)
Creatinine 2.0 H mg/dL
(0.7-1.3)
Glucose 193 H mg/dl
(70-99)
02/15/24 10:22
02/15/24 10:22
Vital Signs
Blood pressure: 213/113
Initial and Last Documented VS:
Initial Vital Signs
Temp Pulse Resp BP Pulse Ox
36.7 C 107 16 225/135 98
02/15/24 09:57 02/15/24 09:57 02/15/24 09:57 02/15/24 09:57 02/15/24 09:57
Last Documented Vital Signs
Temp Pulse Resp BP Pulse Ox
36.7 C 88 24 171/95 98
02/15/24 09:57 02/15/24 13:15 02/15/24 13:15 02/15/24 13:00 02/15/24 09:57
*Critical Care Note
Total Time (30-74mins, 75-104mins- exclusive of procedures): Not Applicable
ED Attending Note
-
Portions of this chart may have been created with voice recognition software.� Occasional wrong word or��sound alike� substitutions may have occurred due to the inherent limitations of voice recognition software.
Discharge Plan
Departure
Patient Disposition: Admit
Date of Disposition: 02/15/24
Time of Disposition: 13:16
Presentation/result/management discussed w/ accepting MD/DO: Hospitalist
Discharge Problem:
Hypertensive urgency
Prescriptions:
No Action
cholecalciferol (vitamin D3) [Vitamin D3] 25 mcg (1,000 unit) Tablet
25 mcg PO DAILY
metformin 500 mg Tablet
500 mg PO BID@0800,1700 Qty: 120 0RF
atorvastatin 40 mg Tablet
40 mg PO QPM Qty: 30 0RF
aspirin [Children's Aspirin] 81 mg Tablet,Chewable
81 mg PO DAILY Qty: 0 0RF
magnesium oxide 500 mg magnesium Tablet
500 mg PO DAILY Qty: 0 0RF
cyanocobalamin (vitamin B-12) 1,000 mcg tablet
1,000 mcg PO DAILY Qty: 30 0RF
multivitamin Tablet
1 tab PO BID
Jardiance 25 mg tablet
10 mg PO DAILY
Referrals:
Andrzej Vaughn DO [Family Provider] -
Interventions
Interventions:
*Risk Screen - Suicide Last Done: 02/15/24 09:56
*Neglect/Abuse Screening Last Done: 02/15/24 09:56
ED- Fall Risk Assessment Last Done: 02/15/24 11:10
*ED COVID-19 Vaccine History Last Done: 02/15/24 10:15
ED- Cardiac Assessment Last Done: 02/15/24 11:10
ED- Neurological Assessment Last Done: 02/15/24 11:10
ED- Pulmonary Assessment Last Done: 02/15/24 11:10
Discharge Date and Time
Print Language: ARGENTINE
[2024-02-15] MEDS: TRANDATE 10 MG IV ×2 (10:42→12:14)
[2024-02-15 10:43] LABS: % Basophils 0.3 % (0-2); % Eosinophils 0.1 % (0-6); % Immature Granulocytes 0.3 % (0-0.5); % Lymphocytes 9.5 % (20.5-51.1); % Monocytes 5.6 % (1.7-9.3); % Neutrophils 84.2 % (42.2-75.2); Absolute Lymphocytes 0.7 10^3/uL (1.2-3.4); Absolute Monocytes 0.4 10^3/uL (0.1-0.6); Absolute Neutrophils 6.5 10^3/uL (1.4-6.5); Hematocrit 46.2 % (39.0-52.0); Hemoglobin 15.6 g/dL (13.0-18.0); Mean Corp Hgb Conc. 33.8 g/dL (33.0-37.0); Mean Corpuscular Hgb 28.8 pg (27.0-31.0); Mean Corpuscular Volume 85.2 fL (80.0-94.0); Nucleated Red Blood Cells % 0 % (-); Red Blood Cell Count 5.42 10^6/uL (4.70-6.10); Red Cell Dist. Width 14.3 % (11.5-14.5); White Blood Cell Count 7.7 10^3/uL (4.8-10.8)
[2024-02-15 10:51] LABS: ALT (SGPT) 22 U/L (0-50); AST (SGOT) 24 U/L (17-59); Albumin 4.3 g/dl (3.5-5.0); Alkaline Phosphatase 68 U/L (38-126); Blood Urea Nitrogen 45 mg/dl (9-20); Calcium 9.3 mg/dl (8.4-10.2); Carbon Dioxide 23 mmol/L (22-30); Chloride 104 mmol/L (98-107); Glucose 193 mg/dl (70-99); Sodium 141 mmol/L (135-145); Total Bilirubin 1.1 mg/dl (0.2-1.3); eGFR 35.24
[2024-02-15 10:52] LABS: NT-proBNP 7280 pg/ml
[2024-02-15] MEDS: NSS 500 IV (10:54)
[2024-02-15 11:08] LABS: Platelet Count 99 10^3/uL (130-400)
--- NOTE | 2024-02-15 11:14 | EDRN ---
Pt was taken to CT prior to my getting the repeat Labetalol order. Will administer upon return
[2024-02-15 13:53] LABS: Urine Albumin 2+ (Neg - Trace); Urine Bilirubin 1+ (Negative); Urine Character Slightly Cloudy (Clear); Urine Color Yellow; Urine Glucose 3+ (Negative); Urine Ketone Trace (Negative); Urine Leukocyte Trace (Negative); Urine Nitrite Negative (Negative); Urine Occult Blood Negative (Negative); Urine Urobilinogen Negative (Neg - 1+)
--- NOTE | 2024-02-15 14:02 | HPS.HSE ---
Family Physician
-
Family Physician: Andrzej Vaughn
Chief Complaint
-
vomiting
History of Present Illness
68-year-old male past medical history of hypertension, diabetes, hypercholesterolemia, chronic thrombocytopenia, vitamin D deficiency, presenting for vomiting. He initially developed left back pain which he thought was a muscle spasm 2 days ago.
He started having nausea and multiple vomiting episodes over the past 2 days. He denies any urinary symptoms such as burning or frequency or blood in the urine although he has been making less urine. He denies any fevers or chills. He denies any
diarrhea. He denies any history of kidney stones but his father had kidney stones. He denies any history of kidney disease.
He stopped taking lisinopril 6 months ago due to lower extremity edema which improved after he stopped taking lisinopril. He states his blood pressure has since been around 150s.
He developed severe headache today associate with some blurry vision and some shortness of breath. He states all of the symptoms have improved since he was given labetalol in the emergency room today and his blood pressures improved.
He has lost 70 pounds in the past several years after he was diagnosed with diabetes. In the past week he feels he has gained 6 to 7 pound with some fluid retention in his abdomen.
He drinks alcohol occasionally. He denies smoking.
Medical History
Past Medical History
Past Medical History: Reports Other (hypertension, diabetes, hypercholesterolemia, chronic thrombocytopenia, vitamin D deficiency, melanoma of neck s/p resection)
Past Surgical History: Reports Other (melanoma of neck s/p resection)
Social History
Tobacco: Non-smoker
Alcohol: Occasional
Drug: None
Family History
Family History: Not pertinent
Allergies / Home Medications
Allergies reflects when Allergies were last updated in [employer].
Home Medications with original date entered in [employer]
Allergy/Medication List:
Allergies
Allergy/AdvReac Type Severity Reaction Status Date / Time
No Known Allergies Allergy Verified 02/15/24 10:01
Home Medications
cholecalciferol (vitamin D3) 25 mcg (1,000 unit) tablet (Vitamin D3) 25 mcg PO DAILY Supplement 04/29/23
atorvastatin 40 mg tablet 40 mg PO QPM High cholesterol #30 tabs 04/30/23
cyanocobalamin (vitamin B-12) 1,000 mcg tablet 1,000 mcg PO DAILY Supplement #30 tabs 04/30/23
magnesium oxide 500 mg PO DAILY Supplement #0 tabs 04/30/23
metformin 500 mg tablet 500 mg PO BID@0800,1700 Diabetes #120 tabs 04/30/23
aspirin 81 mg chewable tablet (Children's Aspirin) 81 mg PO QPM Blood clot prevention/tx 02/15/24
empagliflozin 25 mg tablet (Jardiance) 10 mg PO DAILY Diabetes 02/15/24
multivitamin 1 tab PO BID 02/15/24
Review of Systems
-
History Source: Patient
A 12 point ROS was completed and negative except as noted: Yes
Constitutional: Reports No Symptoms
EENT: Reports No Symptoms
Respiratory: Reports No Symptoms
Cardiac: Reports No Symptoms
Abdomen/GI: Reports No Symptoms
: Reports No Symptoms
Musculoskeletal: Reports No Symptoms
Skin: Reports No Symptoms
Neurological: Reports No Symptoms
Endocrine: Reports No Symptoms
Hematologic/Lymphatic: Reports No Symptoms
Psych: Reports No Symptoms
Physical Exam
Vital Signs
Vital Signs
Temp Pulse Resp BP Pulse Ox
98.0 F 88 24 171/95 98
02/15/24 09:57 02/15/24 13:15 02/15/24 13:15 02/15/24 13:00 02/15/24 09:57
Physical Exam
General: Well Developed, Well Nourished and No Apparent Distress
HEENT: NormoCephalic, Moist mucous membranes and Atraumatic
Respiratory: Clear
Cardiac: S1/S2, Regular Rhythm and Peripheral Edema (trace edema ); No Murmur or Rub
GI: Soft, Non Tender, Non Distended and Normal Bowel Sounds; No Organomegaly
Rectal: Deferred by Provider
Musculoskeletal: No Clubbing, No Cyanosis and No Edema
Skin: No Rash
Neuro: Nonfocal/grossly intact
Laboratory Results
-
02/15/24 10:22
02/15/24 10:22
Laboratory Results
Total Bilirubin 1.1 mg/dl (0.2-1.3) 02/15/24 10:22
AST 24 U/L (17-59) 02/15/24 10:22
ALT 22 U/L (0-50) 02/15/24 10:22
Alkaline Phosphatase 68 U/L (38-126) 02/15/24 10:22
Data Reviewed
-
Lab Data: Labs Reviewed by me
Old Records: Reviewed
Impression/Plan
-
IMPRESSION:
PLAN:
# Obstructive uropathy secondary to proximal left ureteral stones with moderate to advanced proximal hydroureteronephrosis
# Diminished excretion of contrast through right kidney unclear etiology
-As per CT scan stones are 9.4 mm, 5.7 mm
-Check urinalysis
-IV fluids
-Urology consulted and to take to OR tomorrow
-N.p.o. past midnight
-Tylenol, Dilaudid as needed for pain abdominal pain currently, Zofran
-Hold aspirin
# STEFANIE likely multifactorial secondary to prerenal losses vs obstructive uropathy on the left side/obstructive vs medical renal disease likely secondary to hypertensive nephrosclerosis of right kidney
-Unclear what the source of decreased contrast excretion through right kidney is as no history of prior CKD
-IV fluids although cautious with mild pulmonary edema
-Monitor urine output
-No longer on lisinopril
-Consider nephrology if no improvement in kidney function with IV fluids and urological intervention
# Hypertensive urgency secondary to untreated hypertension/pain from obstructive stones
# Severe headache secondary to hypertension
-Headache improved
-CT head negative
-No findings to suggest CVA
-As needed labetalol
# Lower extremity edema/abdominal distention secondary to volume overload from possible STEFANIE on CKD versus new onset CHF
-Cardiac BNP of 7000 but clinically this seems to more likely secondary to renal disease rather than heart failure
-Chest x-ray shows possible mild acute pulmonary edema, tiny bilateral pleural effusions
-Check echo
Mild chronic thrombocytopenia
-Stable
Type 2 diabetes
-Hold Jardiance, metformin
-Insulin sliding scale
Hypercholesterolemia
-Continue statin
Vitamin D deficiency
Full code
DVT prophylaxis�SCDs
N.p.o. past midnight
[2024-02-15 14:12] LABS: Urine Bacteria Few (Negative)
[2024-02-15 16:17] LABS: Glucose - Point of Care 178 mg/dl (70-99)
[2024-02-15] MEDS: NOVOLOG FLEXPEN-LOW RESISTANCE 1 UNITS SC (16:48)
[2024-02-15] MEDS: LIPITOR 40 MG PO (16:49)
[2024-02-15] MEDS: NSS 1000 IV (16:50)
[2024-02-15] MEDS: THERAGRAN 1 TABLET PO (20:11)
[2024-02-15] MEDS: TYLENOL 650 MG PO (20:23)
[2024-02-16] VITALS (14 sets, daily range): BP systolic 130–198; BP diastolic 75–116
[2024-02-16] MEDS: ZOFRAN 4 MG IV ×2 (01:11→11:47)
[2024-02-16] MEDS: NSS 1000 IV ×2 (03:07→14:10)
[2024-02-16 07:36] LABS: Glucose - Point of Care 166 mg/dl (70-99)
--- NOTE | 2024-02-16 07:36 | W.SUR.PREOP ---
Pre-Operative Surgical Note
-
I have examined this patient prior to the performance of the scheduled procedure.
The patient's condition is unchanged from the time of the current History and
Physical and the patient is able to undergo the scheduled procedure.
CT imaging/report reviewed.
Preop discussion had regarding potential risks and complications of cystoscopy + stent placement including but not limited to urosepsis, bleeding, ureteral/bladder injury, risk of ureteral stricture formation, need for additional
procedures/surgeries.
If retrograde stent placement not feasible, patient will require antegrade PCN placement by IR.
- To OR for cysto + left stent placement this afternoon
- Maintain NPO
- Plan for staged outpatient stone surgery in 2-3 weeks
D/w pt and spouse.
[2024-02-16] MEDS: NOVOLOG FLEXPEN-LOW RESISTANCE 1 UNITS SC (07:45)
[2024-02-16] MEDS: MAGNESIUM OXIDE 500 MG PO (09:38)
[2024-02-16] MEDS: TYLENOL 650 MG PO (09:38)
[2024-02-16] MEDS: VITAMIN D3 (cholecalciferol) 25 MCG PO (09:38)
[2024-02-16] MEDS: THERAGRAN 1 TABLET PO ×2 (09:39→21:06)
[2024-02-16] MEDS: VITAMIN B-12 1000 MCG PO (09:40)
[2024-02-16 10:02] LABS: % Basophils 0.4 % (0-2); % Eosinophils 0.6 % (0-6); % Lymphocytes 14.4 % (20.5-51.1); % Monocytes 9.5 % (1.7-9.3); % Neutrophils 73.1 % (42.2-75.2); Absolute Immature Granulocytes 0.1 10^3/uL (0-0.05); Absolute Monocytes 0.7 10^3/uL (0.1-0.6); Absolute Neutrophils 5.1 10^3/uL (1.4-6.5); Hematocrit 38.5 % (39.0-52.0); Hemoglobin 13.1 g/dL (13.0-18.0); Mean Corpuscular Hgb 28.7 pg (27.0-31.0); Mean Corpuscular Volume 84.2 fL (80.0-94.0); Mean Platelet Volume 11.2 fL (7.4-10.4); Nucleated Red Blood Cells % 0 % (-); Platelet Count 97 10^3/uL (130-400); Red Blood Cell Count 4.57 10^6/uL (4.70-6.10); Red Cell Dist. Width 14.6 % (11.5-14.5)
[2024-02-16 10:51] LABS: ALT (SGPT) 20 U/L (0-50); AST (SGOT) 18 U/L (17-59); Albumin 3.6 g/dl (3.5-5.0); Alkaline Phosphatase 61 U/L (38-126); Blood Urea Nitrogen 59 mg/dl (9-20); Calcium 8.5 mg/dl (8.4-10.2); Carbon Dioxide 22 mmol/L (22-30); Chloride 105 mmol/L (98-107); Estimated Creatinine Clearance 17 ml/min; Glucose 139 mg/dl (70-99); Potassium 4.4 mmol/L (3.5-5.1); Sodium 141 mmol/L (135-145); Total Bilirubin 0.8 mg/dl (0.2-1.3); eGFR 13.68
[2024-02-16 11:40] LABS: Glucose - Point of Care 123 mg/dl (70-99)
[2024-02-16] MEDS: NOVOLOG FLEXPEN-LOW RESISTANCE SC ×2 (11:53→17:50)
--- NOTE | 2024-02-16 13:42 | W.PN.HOSP.TC ---
Today's Communication/Plan
-
OR today
Assessment / Plan
Assessment / Plan
pt is a 68 year old male
nausea/vomiting--think due to STEFANIE with creat up to 4.4--likely due to Obstructive uropathy secondary to proximal left ureteral stones with moderate to advanced proximal hydroureteronephrosis--apprec urology--for OR today--cont IVF/NPO--holding
asa--pain control, zofran--trend creat
Hypertensive urgency secondary to untreated hypertension/pain from obstructive stones with Severe headache secondary to hypertension-CT head negative-No findings to suggest CVA--PRN labetalol--may need standing med
Lower extremity edema/abdominal distention secondary to volume overload from possible STEFANIE versus new onset CHF, doubt--pro BNP 7280--consider ECHO
Mild chronic thrombocytopenia--Stable
Type 2 diabetes mellitus--Hold Jardiance, metformin--Insulin sliding scale
Hypercholesterolemia--Continue statin
Vitamin D deficiency
code status --Full code
DVT prophylaxis�SCDs
Anticipated Discharge: > 48 hours
Subjective/Interval History
-
Date of Service: February 16, 2024
pt feels sick to his stomach--going to OR with rising creat
Objective Data
-
Labs:
Laboratory Results
02/16/24
09:00
WBC 7.0
Hgb 13.1
Hct 38.5 L
Plt Count 97 L
Sodium 141
Potassium 4.4
Chloride 105
Carbon Dioxide 22
BUN 59 H
Creatinine 4.4 H*
Glucose 139 H
Calcium 8.5
Total Bilirubin 0.8
AST 18
ALT 20
Alkaline Phosphatase 61
Vital Signs:
max temp for 24 hours
02/15/24
15:31
Temp 98.7 F
Vital Signs
Temp Pulse Resp BP Pulse Ox
98.1 F 103 18 169/105 97
02/16/24 11:28 02/16/24 11:28 02/16/24 11:28 02/16/24 11:28 02/16/24 11:28
I&O
02/15/24 02/16/24 02/17/24
06:59 06:59 06:59
Intake Total 480 / 480
Balance 480 / 480
Review of Systems
-
All other systems: Reviewed and negative
Abdomen/GI: Reports Nausea and Vomiting
Physical Exam
-
General: Well Developed, Well Nourished and No Apparent Distress
HEENT: Normocephalic and Atraumatic; Negative Oxygen
Respiratory: Clear to Auscultation; Negative Wheezes or Rhonchi
Cardiac: Regular Rhythm and S1/S2; Negative Murmur
GI: Soft, Nontender, Nondistended and Normal Bowel Sounds
Musculoskeletal: No Clubbing, No Cyanosis and No Edema
Neuro: Awake and Alert
Psych: Calm
--- NOTE | 2024-02-16 13:50 | CM ---
Patient seen at bedside with physician. Patient for OR today per physician. Patient stated that he lives in a 4 story home with 14 steps to enter. Patient stated that Dr. Mcleod is his physician and he uses the [facility] in [place] for pharmacy needs.
Patient plan is for discharge home with no needs vs home with VN. CM will continue to follow for discharge planning needs.
Plan; home with no needs vs home with VN pending outcome of procedure.
[2024-02-16] MEDS: COMPAZINE 5 MG IV (14:43)
[2024-02-16] MEDS: ANCEF 10 IV (15:45)
--- NOTE | 2024-02-16 16:37 | W.IMMPOSTOP ---
Addendum entered and electronically signed by Modesto Cobb MD 02/16/24 16:50:
Marquez catheter placed given ARF and monitoring of any post-obstructive diuresis.
Original Note:
Surgical Immed Post Op Note
-
Primary Surgeon: Jordyn
Pre-op Diagnosis: ARF, large left ureteral stones w/ high-grade obstructive uropathy
Post-op Diagnosis: Same
Procedure Performed: cystoscopy + left ureteral stent placement
Anesthesia Type: LMA
Specimen / Cultures: None/None
Estimated Blood Loss: Negligible
Drains: 6Fr x 26 cm JJ left ureteral stent, 18Fr Marquez catheter (10 cc in balloon)
Complications: None
Operative Findings: radiopaque left ureteral stones x2 and renal stones noted on KUB, final KUB + cystoscopy verifying appropriate left stent position.
Discussed intra-op findings and plan of care w/ spouse via telephone (Mara).
[2024-02-16 17:48] LABS: Glucose - Point of Care 128 mg/dl (70-99)
--- NOTE | 2024-02-16 19:39 | PTCARENOTE ---
Received patient at 1745 from PACU S/P Cysto with stent placement. AAOx3, HRR, Lungs clear. IVF infusing without difficulty. Marquez intact an draining punch color urine. Tolerated diet well. Offered no complaints. Made patient comfortable. Cont to
assess patient status.
[2024-02-16] MEDS: LIPITOR 40 MG PO (21:05)
[2024-02-17] VITALS (9 sets, daily range): BP systolic 169–208; BP diastolic 87–130
[2024-02-17] MEDS: NSS 1000 IV ×2 (00:49→11:19)
[2024-02-17 03:13] LABS: Glucose - Point of Care 108 mg/dl (70-99)
[2024-02-17] MEDS: THERAGRAN 1 TABLET PO ×2 (07:59→21:24)
[2024-02-17] MEDS: MAGNESIUM OXIDE 500 MG PO (07:59)
[2024-02-17] MEDS: VITAMIN B-12 1000 MCG PO (07:59)
[2024-02-17] MEDS: VITAMIN D3 (cholecalciferol) 25 MCG PO (07:59)
[2024-02-17 08:05] LABS: Glucose - Point of Care 141 mg/dl (70-99)
[2024-02-17] MEDS: NOVOLOG FLEXPEN-LOW RESISTANCE SC (08:09)
[2024-02-17] MEDS: TRANDATE 10 MG IV ×3 (08:11→21:25)
[2024-02-17 08:24] LABS: Hematocrit 42.5 % (39.0-52.0); Hemoglobin 14.1 g/dL (13.0-18.0); Mean Corp Hgb Conc. 33.2 g/dL (33.0-37.0); Mean Corpuscular Hgb 28.2 pg (27.0-31.0); Mean Platelet Volume 11.3 fL (7.4-10.4); Platelet Count 106 10^3/uL (130-400); Red Cell Dist. Width 14.6 % (11.5-14.5); White Blood Cell Count 6.9 10^3/uL (4.8-10.8)
[2024-02-17 08:43] LABS: ALT (SGPT) 21 U/L (0-50); AST (SGOT) 18 U/L (17-59); Albumin 3.8 g/dl (3.5-5.0); Alkaline Phosphatase 71 U/L (38-126); Blood Urea Nitrogen 34 mg/dl (9-20); Calcium 8.9 mg/dl (8.4-10.2); Carbon Dioxide 22 mmol/L (22-30); Chloride 106 mmol/L (98-107); Estimated Creatinine Clearance 35 ml/min; Glucose 127 mg/dl (70-99); Magnesium 1.8 mg/dl (1.6-2.3); Potassium 4.2 mmol/L (3.5-5.1); Sodium 142 mmol/L (135-145); Total Bilirubin 0.9 mg/dl (0.2-1.3); Total Protein 6.3 g/dl (6.3-8.2); eGFR 33.24
--- NOTE | 2024-02-17 12:15 | W.PN.URO.CBU ---
Today's Communication / Plan
-
- BP management per Hospitalist (hypertensive urgency)
- Trend Cr (downtrending)
- Outpatient F/U in 2 weeks to discuss/schedule kidney stone surgery
D/w patient and spouse.
D/w Hospitalist.
Assessment / Plan
-
STEFANIE - improving
Obstructing large volume left ureteral stones w/ hydronephrosis - s/p left stent placement
Cr 4.4 => 2.1 (after stent placement)
Diagnosis
-
Date of Service: February 17, 2024
-
Patient Diagnosis:
STEFANIE
Obstructing large volume left ureteral stones w/ hydronephrosis
Post Op Day:
02/15: s/p cystoscopy + left ureteral stent placement
Subjective
-
Voiding clear yellow urine (noted in urinal).
Denies stent bother or dysuria.
Tolerating diet.
Nausea and vomiting resolved.
Objective
-
Vital Signs
Temp Pulse Resp BP Pulse Ox
98.6 F 100 18 190/100 96
02/17/24 11:11 02/17/24 11:11 02/17/24 11:11 02/17/24 12:47 02/17/24 13:20
Intake and Output
02/16/24 02/17/24 02/18/24
06:59 06:59 06:59
Intake Total 480 / 480 960 / 960
Output Total 4625 / 4625
Balance 480 / 480 -3665 / -3665
Intake:
Oral fluids 480 / 480 960 / 960
Output:
Emesis 150 / 150
Urine, Marquez 4475 / 4475
Other:
Number of approximated MODERATE 2
amounts of urine
Laboratory Results
02/17/24 07:37
02/17/24 07:37
Physical Exam
-
General - well developed, well nourished, no acute distress
Abdomen - soft, non-tender, non-distended
Genitalia - normal
Neuro - AOx3, no motor deficits
Extremities - no clubbing, no cyanosis, no edema
Care Review
Data Reviewed
Discussed with: Hospitalist and Family
CT Scan: Report Pers Reviewed and Image Pers Reviewed
[2024-02-17] MEDS: APRESOLINE 25 MG PO (12:47)
[2024-02-17 13:03] LABS: Glucose - Point of Care 209 mg/dl (70-99)
[2024-02-17] MEDS: NOVOLOG FLEXPEN-LOW RESISTANCE 2 UNITS SC (13:23)
--- NOTE | 2024-02-17 14:04 | CM ---
Patient seen at bedside with patient and physician. Patient eager to go home. Physician requested that patient remain overnight. CM called to Dr. Vaughn and obtained on the request of physician. Nurse from office agreed to fax latest lab values
from physician office. IMM form provided to patient for review. CM will continue to follow for discharge planning needs.
Plan; home with VN; vs home with no needs.
--- NOTE | 2024-02-17 14:07 | W.PN.HOSP.TC ---
Today's Communication/Plan
-
getting fax from Dr. Vaughn's office for baseline creat
hopeful d/c tomorrow
Assessment / Plan
Assessment / Plan
pt is a 68 year old male
nausea/vomiting--resolved--think due to STEFANIE with creat up to 4.4, now down to 2.1--likely due to Obstructive uropathy secondary to proximal left ureteral stones with moderate to advanced proximal hydroureteronephrosis--apprec urology--s/p OR
today--stop IVF--holding asa--pain control, zofran--trend creat
Hypertensive urgency secondary to untreated hypertension/pain from obstructive stones with Severe headache secondary to hypertension-CT head negative-No findings to suggest CVA--PRN labetalol--may need standing med--called Dr. Vaughn's office (BPs
10/03/23 = 140/90 and 11/12/23 = 148/88)--
Lower extremity edema/abdominal distention secondary to volume overload from possible STEFANIE versus new onset CHF, doubt--pro BNP 7280--consider ECHO
Mild chronic thrombocytopenia--Stable
Type 2 diabetes mellitus--Hold Jardiance, metformin--Insulin sliding scale--aimee since creat 2.1
Hypercholesterolemia--Continue statin
Vitamin D deficiency
code status --Full code
DVT prophylaxis�SCDs
Anticipated Discharge: Within 24 hours
Subjective/Interval History
-
Date of Service: February 17, 2024
pt without c/o--feeling better
Objective Data
-
Labs:
Laboratory Results
02/17/24
07:37
WBC 6.9
Hgb 14.1
Hct 42.5
Plt Count 106 L
Sodium 142
Potassium 4.2
Chloride 106
Carbon Dioxide 22
BUN 34 H
Creatinine 2.1 H
Glucose 127 H
Calcium 8.9
Total Bilirubin 0.9
AST 18
ALT 21
Alkaline Phosphatase 71
Vital Signs:
max temp for 24 hours
02/17/24
11:11
Temp 98.6 F
Vital Signs
Temp Pulse Resp BP Pulse Ox
98.6 F 100 18 190/100 96
02/17/24 11:11 02/17/24 11:11 02/17/24 11:11 02/17/24 12:47 02/17/24 13:20
I&O
02/16/24 02/17/24 02/18/24
06:59 06:59 06:59
Intake Total 480 / 480 960 / 960
Output Total 4625 / 4625
Balance 480 / 480 -3665 / -3665
Review of Systems
-
All other systems: Reviewed and negative
Physical Exam
-
General: Well Developed, Well Nourished and No Apparent Distress
HEENT: Normocephalic and Atraumatic
Respiratory: Clear to Auscultation; Negative Wheezes or Rhonchi
Cardiac: Regular Rhythm and S1/S2; Negative Murmur
GI: Soft, Nontender, Nondistended and Normal Bowel Sounds
Musculoskeletal: No Clubbing, No Cyanosis and No Edema
Skin: Warm
Neuro: Awake
Psych: Calm
--- NOTE | 2024-02-17 15:33 | PTCARENOTE ---
Addendum entered by Heaven Cedeño RN 02/17/24 19:29:
MD notified of continued high BP of 198/110. Ordered and administered Norvasc 10 mg po. Patient remains asymptomatic.
Addendum entered by Heaven Cedeño RN 02/17/24 17:31:
Patient remains with high BP. MD made aware. 0.5 mg IV ativan given without effect. Labatol ordered every 6 hours. Additional dose given as ordered. Patient is not symptomatic.
Original Note:
Patient hypertensive today with BP as high as 200s/100s. MD aware. Labatolol given as prn medication. Hydralazine oral given as ordered by MD. MD notified again as BP is not trending down. Heart rate 110. MD is ordering ativan to try as he is
anxious about being hospitalized.
[2024-02-17] MEDS: ATIVAN 0.5 MG IV (15:43)
[2024-02-17] MEDS: NSS (PRESERVATIVE FREE) 0.25 ML IV (15:43)
[2024-02-17 17:26] LABS: Glucose - Point of Care 171 mg/dl (70-99)
[2024-02-17] MEDS: NOVOLOG FLEXPEN-LOW RESISTANCE 1 UNITS SC (17:33)
[2024-02-17] MEDS: NSS IV (17:43)
[2024-02-17] MEDS: LIPITOR 40 MG PO (18:16)
[2024-02-17] MEDS: NORVASC 10 MG PO (19:18)
[2024-02-17 21:14] LABS: Glucose - Point of Care 174 mg/dl (70-99)
[2024-02-18] MEDS: TRANDATE 10 MG IV ×3 (00:09→10:00)
[2024-02-18 01:21] VITALS: BP 166/94
[2024-02-18 03:24] VITALS: BP 161/97
[2024-02-18 07:32] VITALS: BP 171/104
[2024-02-18] MEDS: THERAGRAN 1 TABLET PO (07:33)
[2024-02-18] MEDS: VITAMIN B-12 1000 MCG PO (07:33)
[2024-02-18] MEDS: VITAMIN D3 (cholecalciferol) 25 MCG PO (07:33)
[2024-02-18] MEDS: MAGNESIUM OXIDE 500 MG PO (07:33)
[2024-02-18 08:11] LABS: Blood Urea Nitrogen 31 mg/dl (9-20); Calcium 9.3 mg/dl (8.4-10.2); Carbon Dioxide 30 mmol/L (22-30); Chloride 103 mmol/L (98-107); Estimated Creatinine Clearance 67 ml/min; Glucose 158 mg/dl (70-99); Potassium 4.1 mmol/L (3.5-5.1); Sodium 143 mmol/L (135-145); eGFR > 60.00
[2024-02-18 08:22] LABS: Glucose - Point of Care 138 mg/dl (70-99)
[2024-02-18 09:04] LABS: Glycohemoglobin (HgbA1c) 6.7 % (4.0-5.6)
[2024-02-18] MEDS: NOVOLOG FLEXPEN-LOW RESISTANCE SC ×2 (09:19→12:57)
[2024-02-18 11:00] VITALS: BP 179/102
--- NOTE | 2024-02-18 12:19 | W.PN.HOSP.TC ---
Today's Communication/Plan
-
d/c
Assessment / Plan
Assessment / Plan
pt is a 68 year old male
nausea/vomiting--resolved--think due to STEFANIE with creat up to 4.4, now down to 1.1--likely due to Obstructive uropathy secondary to proximal left ureteral stones with moderate to advanced proximal hydroureteronephrosis--apprec urology--s/p OR
02/16/24--stop IVF--holding asa--pain control, zofran--trend creat
Hypertensive urgency secondary to untreated hypertension/pain from obstructive stones with Severe headache secondary to hypertension-CT head negative-No findings to suggest CVA--PRN labetalol--may need standing med--called Dr. Vaughn's office (BPs
10/03/23 = 140/90 and 11/12/23 = 148/88)--baseline creat 0.9
Lower extremity edema/abdominal distention secondary to volume overload from possible STEFANIE versus new onset CHF, doubt--pro BNP 7280
Mild chronic thrombocytopenia--Stable
Type 2 diabetes mellitus--Hold Jardiance, metformin--Insulin sliding scale--can restart at d/c
Hypercholesterolemia--Continue statin
Vitamin D deficiency
code status --Full code
DVT prophylaxis�SCDs
Anticipated Discharge: Today
Subjective/Interval History
-
Date of Service: February 18, 2024
pt ready for d/c
Objective Data
-
Labs:
Laboratory Results
02/18/24
07:34
Sodium 143
Potassium 4.1
Chloride 103
Carbon Dioxide 30
BUN 31 H
Creatinine 1.1
Glucose 158 H
Calcium 9.3
Vital Signs:
max temp for 24 hours
02/17/24
19:57
Temp 99.5 F
Vital Signs
Temp Pulse Resp BP Pulse Ox
97.5 F 84 15 179/102 94
02/18/24 11:00 02/18/24 11:00 02/18/24 11:00 02/18/24 11:00 02/18/24 11:00
I&O
02/17/24 02/18/24 02/19/24
06:59 06:59 06:59
Intake Total 960 / 960 2360 / 2360
Output Total 4625 / 4625 1850 / 1850
Balance -3665 / -3665 510 / 510
Review of Systems
-
All other systems: Reviewed and negative
Physical Exam
-
General: Well Developed, Well Nourished and No Apparent Distress
HEENT: Normocephalic and Atraumatic
Respiratory: Clear to Auscultation; Negative Wheezes or Rhonchi
Cardiac: Regular Rhythm and S1/S2; Negative Murmur
GI: Soft, Nontender, Nondistended and Normal Bowel Sounds
Musculoskeletal: No Clubbing, No Cyanosis and No Edema
Neuro: Awake and Alert
Psych: Calm
--- NOTE | 2024-02-18 12:34 | CM ---
Patient seen at bedside with physician, LOC reviewed and signed copy placed on chart. Patient for discharge today home with . No VN needed at this time per physician. Patient eager for discharge. CM will continue to follow for discharge planning
needs.
Plan; home with no needs
[2024-02-18 12:40] LABS: Glucose - Point of Care 135 mg/dl (70-99)
--- NOTE | 2024-02-19 15:48 | W.DCSUMMARY ---
Discharge Summary
Discharge Data
Date of Admission: 02/15/24
Date of Discharge: 02/18/24
Total time spent discharging patient (in min): 38
-
Pending Results: No
Hospital Course
Primary care physician : Andrzej Vaughn
Principal Discharge diagnosis : Acute kidney injury due to obstructive uropathy, hypertensive urgency secondary to untreated/uncontrolled hypertension
Chronic Discharge diagnosis : Lower extremity edema, mild chronic thrombocytopenia, type 2 diabetes mellitus, hyperlipidemia, vitamin D deficiency
Hospital Course : Patient was a 68-year-old male with a history of essential hypertension, type 2 diabetes, chronic thrombocytopenia among others who presented for vomiting. He initially developed back pain which she thought was a muscle spasm 2
days prior to admission. He then started having nausea and vomiting over the 2 days. He denied any urinary symptoms such as burning or frequency or blood in the urine but did state he was making less urine. He denied any fevers or chills. He
denied any history of kidney stones but did say his father had kidney stones. He stopped taking his lisinopril 6 months ago due to lower extremity edema. He also complained of a severe headache with some associated blurry vision and shortness of
breath. He stated that he lost 70 pounds in the last several years after he was diagnosed with diabetes. Patient was found to have acute kidney injury due to obstructing uropathy and was admitted.
Problem #1: Acute kidney injury due to obstructive uropathy. Patient had a CAT scan done which showed 2 stones in the proximal ureter along with moderate to advanced obstructive uropathy. Patient was seen in consultation by urology and went to the
operating room for cystoscopy with left ureteral stent placement. Patient's creatinine at baseline is 0.9 and on admission it was found to be 2.0. He peaked at 4.4 which then improved to 1.1. He was given a Marquez catheter, IV fluids and surgery
to relieve the obstruction. Lisinopril was held due to his acute renal issues. Metformin was also held. He is feeling back to baseline at this time.
Problem #2: Hypertensive urgency secondary to untreated/uncontrolled hypertension. Patient's blood pressure has been uncontrolled here. Initially was thought to be due to pain however once the patient was feeling better his blood pressure did not
improve. He was given as needed hydralazine, as needed labetalol all without improvement. He was also somewhat tachycardic. I did question whether or not he drinks alcohol as his platelet count was low, blood pressure was high, heart rate was
high but patient denied any significant alcohol intake. I did call the primary care physician's office and was told that his blood pressures run 140s over 90s there. I also explained to him that the lisinopril does not cause lower extremity edema
however; his nifedipine certainly could. Nevertheless, he is not taking any blood pressure medicines at this time. He was restarted on lisinopril at discharge. He should follow-up with his primary care physician for ongoing blood pressure
treatment/management.
Problem #3: All other medical issues. These include Lower extremity edema, mild chronic thrombocytopenia, type 2 diabetes mellitus, hyperlipidemia, vitamin D deficiency. These medical issues were stable during his hospitalization. Medications
were continued as able.
Patient is stable for discharge home at this time. If there are any questions regarding this dictation or his hospital stay, please not hesitate to call. Our office number is [phone].
Time for discharge 38 minutes.
Important imaging findings :
ABDOMEN/PELVIS CT IMPRESSION:
There are 2 calculi in the proximal ureter. The more proximal calculus measuring 1.4 mm. Within 1.5 cm this stone, there is an additional 5.7 mm calculus. Moderate to advanced obstructive uropathy present.
Lack of excretion of contrast material from the RIGHT KIDNEY, without renal or ureteral calculus and no obstructive uropathy. This raises concern for the possibility of renal insufficiency. Clinical correlation recommended.
Small bilateral pleural effusions.
Cholelithiasis. No CT evidence of acute cholecystitis.
Right renal cysts.
Diverticulosis without acute diverticulitis.
1.5 cm umbilical hernia containing fat.
No urinary bladder calculus.
Procedure findings :
Primary Surgeon: Jordyn
Pre-op Diagnosis: ARF, large left ureteral stones w/ high-grade obstructive uropathy
Post-op Diagnosis: Same
Procedure Performed: cystoscopy + left ureteral stent placement
Anesthesia Type: LMA
Specimen / Cultures: None/None
Estimated Blood Loss: Negligible
Drains: 6Fr x 26 cm JJ left ureteral stent, 18Fr Marquez catheter (10 cc in balloon)
Complications: None
Operative Findings: radiopaque left ureteral stones x2 and renal stones noted on KUB, final KUB + cystoscopy verifying appropriate left stent position.
Discharge Plan
-
Patient Disposition: Home (Routine Discharge)
Discharge Diagnosis/Procedures: Acute kidney injury due to obstructive uropathy secondary to proximal left ureteral stone, hypertensive urgency, lower extremity edema with abdominal distention, mild chronic thrombocytopenia, type 2 diabetes
mellitus, hyperlipidemia, vitamin D deficiency
Condition: Good
Diet: Low Cholesterol and Low Sodium
Activity: As tolerated
Driving Restrictions: As prior to admission
Bathing Restrictions: None
Referrals:
Modesto Cobb MD [Active] - (Please call [facility] to schedule a preop visit with Dr. Cobb within 2-3 weeks to discuss and schedule outpatient kidney stone surgery. )
Andrzej Vaughn, [Family Provider] - in less than 1 week
Prescriptions:
New
acetaminophen 325 mg Tablet
650 mg PO Q4HPRN PRN (Reason: mild pain/DAVIS/temp> 100.4F) Qty: 0 0RF
magnesium oxide 500 mg magnesium Tablet
500 mg PO DAILY Qty: 0 0RF
lisinopril 10 mg tablet
10 mg PO DAILY Qty: 30 0RF
Continued
cholecalciferol (vitamin D3) [Vitamin D3] 25 mcg (1,000 unit) Tablet
25 mcg PO DAILY
metformin 500 mg Tablet
500 mg PO BID@0800,1700 Qty: 120 0RF
atorvastatin 40 mg Tablet
40 mg PO QPM Qty: 30 0RF
cyanocobalamin (vitamin B-12) 1,000 mcg tablet
1,000 mcg PO DAILY Qty: 30 0RF
aspirin [Children's Aspirin] 81 mg tablet,chewable
81 mg PO QPM
therapeutic multivitamin Tablet
1 tab PO DAILY
Jardiance 10 mg Tablet
10 mg PO DAILY
Discontinued
naproxen sodium [Aleve] 220 mg Tablet
440 mg PO DAILYPRN PRN (Reason: mild pain)
magnesium oxide 500 mg magnesium tablet
500 mg PO MOWEFR
Discharge Orders:
Discharge Patient (As Directed); Ordered 02/18/24
Ordered By: Mel Huffman
Discharge Date and Time
Discharge Date/Time: 02/18/24 13:47
Print Language: YORUBA
== END 2024-02-18 13:47 | disposition home or self-care (01) | DRG 660 ==
LOC: 4 EAST ACU 14:12
PROVIDERS: Surgery; ADMITTING PHYSICIAN Hospitalist; ATTENDING PHYSICIAN Internal Medicine; EMERGENCY PHYSICIAN Emergency Medicine; FAMILY PHYSICIAN Family Medicine
PROC: BT041ZZ Plain Radiography of Kidneys, Ureters and Bladder using Low Osmolar Contrast (ICD-10-PCS; 2024-02-16)
PROC: 0T778DZ Dilation of Left Ureter with Intraluminal Device, Via Natural or Artificial Opening Endoscopic (ICD-10-PCS; 2024-02-16)
DX: N13.2 Hydronephrosis with renal and ureteral calculous obstruction (principal); J81.1 Chronic pulmonary edema; N17.9 Acute kidney failure, unspecified; R51.9 Headache, unspecified; E78.00 Pure hypercholesterolemia, unspecified; D69.6 Thrombocytopenia, unspecified; E55.9 Vitamin D deficiency, unspecified; E11.22 Type 2 diabetes mellitus with diabetic chronic kidney disease; N18.9 Chronic kidney disease, unspecified; I16.0 Hypertensive urgency; I12.9 Hypertensive chronic kidney disease with stage 1 through stage 4 chronic kidney disease, or unspecified chronic kidney disease; Z79.84 Long term (current) use of oral hypoglycemic drugs
CPT/HCPCS: 70450; 71046; 74018; 74177; 76000; 80048; 80053; 81003; 81015; 82962; 83036; 83735; 83880; 85025; 85027; 93005; 96361; 96374; 96376; 99285; C1769; C2617; Q9967

== ENCOUNTER 2024-02-24 13:40 | Inpatient (IN) | payer BC, MEDICARE, SELFPAY ==
[2024-02-24] VITALS (11 sets, daily range): BP systolic 123–193; BP diastolic 57–103; BMI 26.8; BMI 26.7
--- NOTE | 2024-02-24 10:13 | ED.GENMED ---
History of Present Illness
<Chandni Alva PA-C - Last Filed: 02/24/24 18:21>
General
Chief Complaint: Blood Pressure Problem
Source: patient
Exam Limitations: none
Time Seen by Provider: 02/24/24 10:07
Nursing documentation reviewed up to this point in time: agreed with
History of Present Illness
History of Present Illness:
Patient is a 68 year old male with hx HTN, DM presenting to the emergency department via ems for evaluation of dizziness. Patient states that over the past few mornings he has had dizzy spells associated with nausea/vomiting. The symptoms have
been lasting approximately 30 minutes. He reports blurry vision and difficulties walking due to imbalance during these episodes. Symptoms are worse with head movement. Patient states that symptoms typically resolve and he feels improved
throughout the rest the day. However today symptoms persisted and he called 911.
Patient denies any headache, numbness/tingling, weakness, abdominal pain. Patient denies any diplopia or dysarthria. No chest pain or shortness of breath. No tearing back pain.
Patient was recently discharged from hospital 6 days ago following STEFANIE secondary to kidney stone for which a stent was placed. He was very hypertensive at that time and has been taking lisinopril since discharge.
Review of Systems
<Chandni Alva PA-C - Last Filed: 02/24/24 18:21>
Review of Systems
Allergies reviewed?: Yes
All Other Systems: ROS reviewed and negative except as documented in HPI and ROS
Phy Exam
<Chandni Alva PA-C - Last Filed: 02/24/24 18:21>
Physical Exam
Physical Exam:
Vitals: Hypertensive, otherwise vital signs are stable. Afebrile
General: Patient is well appearing, no acute distress. Nontoxic appearing
Skin: Warm and dry, no rashes or lesions
Head: Normocephalic, atraumatic
Eyes: Sclera nonicteric. EOMs intact. Pupils equal round react bilaterally. Horizontal leftward beating stab
Throat: Protecting airway
Neck: Normal ROM, no cervical spine tenderness, no meningismus
Cardiac: Regular rate and rhythm, no murmurs.
Pulm: Normal respiratory effort, no wheezes, rales, rhonchi heard on exam.
Abdomen: Abdomen soft. No abdominal tenderness.
Extremities: No evidence of cyanosis or edema. Strength 5 out of 5 in upper lower extremities. Sensation fully intact. Palpable DP pulses.
Neuro: AAOx3. CN II-XII intact. No focal neurologic deficits. Speech fluid. Normal finger-nose.
Psychiatric: Normal affect.
Course
<Chandni Alva PA-C - Last Filed: 02/24/24 18:21>
Orders/Labs/Results
Orders:
Orders
02/24/24 Breakfast
1800 calorie (15 carb) Diabetic
At Your Request: Full Participation
Does patient need a safe tray?: No
02/24/24 10:07
Electrocardiogram (*1) Urgent
Reason for Study: Abdominal Pain
EKG- Treatment ONCE
02/24/24 10:14
Complete Blood Count/With Diff Urgent
Comprehensive Metabolic Panel Urgent
Lipase Urgent
02/24/24 10:32
0.9% Sodium Chloride 1000 ml [Nss] 1,000 ml IV BOLUS
02/24/24 10:59
CT Head W/o Iv Contrast Urgent
Comment:
Reason For Exam: HTN, dizziness, vomiting
Labetalol HCl [Trandate] 10 mg IV NOW STA
PT Consult [Pt Eval And Treat] Urgent
Treatment: Vestibular tx
Activity Level: As Tolerated
02/24/24 11:22
Trimethobenzamide [Tigan] 200 mg IM NOW STA
02/24/24 13:24
Admit/Transfer Patient As Directed
Co-Sign Provider:
Level of Care: Inpatient admission
Assign to:: Telemetry
Physician / Group: carey
Diagnosis: HTN urgency vs CVA
Reason for Telemetry: Other
Other Reason for Telemetry: HTN urgency
Date to Stop Telemetry: 02/26/24
Time to Stop Telemetry: 11:00
Reason for Hospitalization: HTN urgency vs CVA
Expected length of stay greater than two midnights?: Yes
ELOS- Estimated Length of Stay in days: 3
I certify the patient meets the requirements for IP care: Yes
02/24/24 13:25
PRN Pain Medication Management As Directed
May give lesser potent ordered pain med per pt: Yes
preference::
Protocol:: Medication orders for pain may be administered in a
manner that supports deferring to patient preference
when the pt is:
- Requesting an ordered lesser potent pain medication.
Least to most potent pain medications are defined
as: acetaminophen < NSAID < tramadol < opioids
(morphine, oxycodone, hydromorphone).
- Requesting a lesser dose of the same medication IF
ORDERED.
- Requesting a less intrusive route of administration
if both routes are prescribed by the provider (PO <
IV).
02/24/24 13:26
Code Status As Directed
Resuscitation Status: Full Code
02/24/24 16:30
Acetaminophen [Tylenol] 650 mg PO Q4HPRN PRN
Bisacodyl [Dulcolax] 10 mg RECTAL [id number] PRN
Dextrose 50%-Water [Dextrose 50% Syringe] 12.5 grams IV [id number] PRN
Docusate W/Senna [Senokot-S] 1 tablet PO BIDPRN PRN
Glucagon [GlucaGen] 1 mg IM PRN PRN
Insulin Aspart Corrective Low [Novolog Flexpen-Low Resistance] See Protocol SC AC
Polyethylene Glycol Powder [Miralax] 17 grams PO DAILYPRN PRN
02/24/24 16:30
Activity As Directed
Activity Level: As Tolerated
Bedside Glucose Monitoring As Directed
Frequency: AC&HS
Additional Instructions:: Change to q6h if pt on TPN, tube feeding or not eating
Neurological Checks As Directed
Frequency: Per unit guidelines
Orthostatic Vital Signs As Directed
Orthostatic VS Frequency: BID
Pneumatic Compression Sleeves As Directed
Type: Knee high
Vital Signs As Directed
Frequency: Per unit guidelines
DX Deep Vein Thrombosis Video Routine
02/24/24 17:00
METFORMIN HCl [Glucophage] 500 mg PO BID@0800,1700
02/24/24 18:00
Aspirin Chewable [Low Strength Aspirin] 81 mg PO QPM
Atorvastatin [Lipitor] 40 mg PO QPM
02/25/24 06:00
Cardiovascular Evaluation IN AM
Glycohemoglobin (HgbA1c) IN AM
02/25/24 08:00
Cholecalciferol (Vitamin D3) [VITAMIN D3 (cholecalciferol)] 25 mcg PO DAILY
Cyanocobalamin [Vitamin B-12] 1,000 mcg PO DAILY
Dapagliflozin [Farxiga] 10 mg PO DAILY
02/26/24 11:00
DC Protocol for Telemetry ONCE
Abnormal Lab Results
02/24/24
10:14
BUN 29 H mg/dl
(9-20)
Glucose 151 H mg/dl
(70-99)
02/24/24 10:14
02/24/24 10:14
Vital Signs
Initial and Last Documented VS:
Initial Vital Signs
Temp Pulse Resp BP Pulse Ox
97.5 F 74 20 193/103 96
02/24/24 10:07 02/24/24 10:07 02/24/24 10:07 02/24/24 10:07 02/24/24 10:07
Last Documented Vital Signs
Temp Pulse Resp BP Pulse Ox
98.2 F 80 17 155/82 99
02/24/24 15:54 02/24/24 15:54 02/24/24 15:54 02/24/24 15:54 02/24/24 15:54
<Brown Crain, DO - Last Filed: 02/24/24 13:01>
Orders/Labs/Results
Orders:
Orders
02/24/24 Breakfast
1800 calorie (15 carb) Diabetic
At Your Request: Full Participation
Does patient need a safe tray?: No
02/24/24 10:07
Electrocardiogram (*1) Urgent
Reason for Study: Abdominal Pain
EKG- Treatment ONCE
02/24/24 10:14
Complete Blood Count/With Diff Urgent
Comprehensive Metabolic Panel Urgent
Lipase Urgent
02/24/24 10:32
0.9% Sodium Chloride 1000 ml [Nss] 1,000 ml IV BOLUS
02/24/24 10:59
CT Head W/o Iv Contrast Urgent
Comment:
Reason For Exam: HTN, dizziness, vomiting
Labetalol HCl [Trandate] 10 mg IV NOW STA
PT Consult [Pt Eval And Treat] Urgent
Treatment: Vestibular tx
Activity Level: As Tolerated
02/24/24 11:22
Trimethobenzamide [Tigan] 200 mg IM NOW STA
02/24/24 13:24
Admit/Transfer Patient As Directed
Co-Sign Provider:
Level of Care: Inpatient admission
Assign to:: Telemetry
Physician / Group: carey
Diagnosis: HTN urgency vs CVA
Reason for Telemetry: Other
Other Reason for Telemetry: HTN urgency
Date to Stop Telemetry: 02/26/24
Time to Stop Telemetry: 11:00
Reason for Hospitalization: HTN urgency vs CVA
Expected length of stay greater than two midnights?: Yes
ELOS- Estimated Length of Stay in days: 3
I certify the patient meets the requirements for IP care: Yes
02/24/24 13:25
PRN Pain Medication Management As Directed
May give lesser potent ordered pain med per pt: Yes
preference::
Protocol:: Medication orders for pain may be administered in a
manner that supports deferring to patient preference
when the pt is:
- Requesting an ordered lesser potent pain medication.
Least to most potent pain medications are defined
as: acetaminophen < NSAID < tramadol < opioids
(morphine, oxycodone, hydromorphone).
- Requesting a lesser dose of the same medication IF
ORDERED.
- Requesting a less intrusive route of administration
if both routes are prescribed by the provider (PO <
IV).
02/24/24 13:26
Code Status As Directed
Resuscitation Status: Full Code
02/24/24 16:30
Acetaminophen [Tylenol] 650 mg PO Q4HPRN PRN
Bisacodyl [Dulcolax] 10 mg RECTAL [id number] PRN
Dextrose 50%-Water [Dextrose 50% Syringe] 12.5 grams IV [id number] PRN
Docusate W/Senna [Senokot-S] 1 tablet PO BIDPRN PRN
Glucagon [GlucaGen] 1 mg IM PRN PRN
Insulin Aspart Corrective Low [Novolog Flexpen-Low Resistance] See Protocol SC AC
Polyethylene Glycol Powder [Miralax] 17 grams PO DAILYPRN PRN
02/24/24 16:30
Activity As Directed
Activity Level: As Tolerated
Bedside Glucose Monitoring As Directed
Frequency: AC&HS
Additional Instructions:: Change to q6h if pt on TPN, tube feeding or not eating
Neurological Checks As Directed
Frequency: Per unit guidelines
Orthostatic Vital Signs As Directed
Orthostatic VS Frequency: BID
Pneumatic Compression Sleeves As Directed
Type: Knee high
Vital Signs As Directed
Frequency: Per unit guidelines
DX Deep Vein Thrombosis Video Routine
02/24/24 17:00
METFORMIN HCl [Glucophage] 500 mg PO BID@0800,1700
02/24/24 18:00
Aspirin Chewable [Low Strength Aspirin] 81 mg PO QPM
Atorvastatin [Lipitor] 40 mg PO QPM
02/25/24 06:00
Cardiovascular Evaluation IN AM
Glycohemoglobin (HgbA1c) IN AM
02/25/24 08:00
Cholecalciferol (Vitamin D3) [VITAMIN D3 (cholecalciferol)] 25 mcg PO DAILY
Cyanocobalamin [Vitamin B-12] 1,000 mcg PO DAILY
Dapagliflozin [Farxiga] 10 mg PO DAILY
02/26/24 11:00
DC Protocol for Telemetry ONCE
Abnormal Lab Results
02/24/24
10:14
BUN 29 H mg/dl
(9-20)
Glucose 151 H mg/dl
(70-99)
02/24/24 10:14
02/24/24 10:14
Vital Signs
Initial and Last Documented VS:
Initial Vital Signs
Temp Pulse Resp BP Pulse Ox
97.5 F 74 20 193/103 96
02/24/24 10:07 02/24/24 10:07 02/24/24 10:07 02/24/24 10:07 02/24/24 10:07
Last Documented Vital Signs
Temp Pulse Resp BP Pulse Ox
98.2 F 80 17 155/82 99
02/24/24 15:54 02/24/24 15:54 02/24/24 15:54 02/24/24 15:54 02/24/24 15:54
<Chandni Alva PA-C - Last Filed: 02/24/24 18:21>
MDM/Problems Addressed
Differential Diagnosis Includes:
Not limited to: hypertensive urgency, hypertensive emergency, acute dehydration, STEFANIE, BPPV
MDM/Problems Addressed:
68-year-old male with history as documented presenting with dizziness and vomiting. Symptoms have been intermittent over the past few days and worse with position changes. Patient found to be hypertensive on arrival to emergency department. No
headache, chest pain, visual changes, back pain, numbness/tingling. He does report associated ataxia. Patient with recent adjustments to hypertensive medications. He has stable vital signs. On exam�patient is well-appearing, no apparent
distress. Cardio/pulmonary assessment unremarkable. No focal neurologic deficits. Unable to clearly reproduce symptoms on exam. EKG with prolongation of QT otherwise normal sinus rhythm. Differential broad although given hypertension�concern
for hypertensive urgency vs CVA. Other considerations include peripheral vertigo. Will check labs and head CT. Will have PT, evaluate patient. Will give IV labetalol.
Chronic conditions affecting care:
HTN
Acute Exacerbation and/or Progression of Chronic Illness:
Acutely hypertensive
<Chandni Alva PA-C - Last Filed: 02/24/24 18:21>
*Radiology
Radiology exam reviewed: preliminary read by ED provider and radiology read reviewed
*Pulse Oximetry
Patient hypoxic: no
*EKG
Interpreted by ED Provider?: Yes
EKG Intrepretation Date: 02/24/24
Interpretation: normal
Comparison EKG: no changes
Heart Rate: 74
Rate: normal
Rhythm: sinus
[place]: normal axis
Interval: long QT
QRS Pattern: normal QRS
Ischemia: no ischemia
*[employer]er [employer] Interpretation
Rate: normal
Interpretation: normal
Heart Rate: 76
Rhythm: sinus
*Critical Care Note
Total Time (30-74mins, 75-104mins- exclusive of procedures): Not Applicable
<Chandni Alva PA-C - Last Filed: 02/24/24 18:21>
Patient Management
Discussion with other providers: Hospitalist
Escalation/DeEscalation of care consider admission/obs:
Admit for MRI
<Chandni Alva PA-C - Last Filed: 02/24/24 18:21>
Update Note
Update Note:
Update: Labs reviewed. No clinically significant abnormalities. CT head without any acute abnormalities. BP mildly improved following labetalol does remain hypertensive. PT did evaluate patient and was unable to reproduce symptoms are clearly
identified peripheral vertigo. Given patient's significant hypertension and persistent intermittent dizziness�will admit patient to hospital for symptomatic hypertension and to rule out CVA. Patient accepted to hospital service in stable
condition. Case seen with attending physician.
ED Attending Note
<Chandni Alva PA-C - Last Filed: 02/24/24 18:21>
-
Portions of this chart may have been created with voice recognition software.� Occasional wrong word or��sound alike� substitutions may have occurred due to the inherent limitations of voice recognition software.
<Brown Crain, - Last Filed: 02/24/24 13:01>
ED Attending Note
Patient seen and examined by attending physician: Yes
I performed a history and physical exam of patient and discussed management with resident, I reviewed resident's note and agree with documented findings and plan of care.: Yes
ED Attending Note:
I have reviewed and agree with history and treatment plan by Chandni Morales. My exam revealed 68-year-old male, hypertensive with persistent dizziness. Concern for posterior CVA versus symptomatic hypertension. Admit to hospitalist for further
workup.
Discharge Plan
Departure
Patient Disposition: Admit
Date of Disposition: 02/24/24
Time of Disposition: 12:53
Presentation/result/management discussed w/ accepting MD/DO: Hospitalist
Patient with high blood pressure during this ER visit?: Yes
Discharge Problem:
Hypertension, Dizziness
Interventions
Interventions:
*Risk Screen - Suicide Last Done: 02/24/24 16:06
*General Assessment Last Done: 02/24/24 10:07
*Neglect/Abuse Screening Last Done: 02/24/24 10:07
*ED COVID-19 Vaccine History Last Done: 02/24/24 10:42
*Nursing Disposition Last Done: 02/24/24 15:46
[facility] Assessment Last Done: 02/24/24 15:39
ED- Cardiac Assessment Last Done: 02/24/24 12:19
ED- Neurological Assessment Last Done: 02/24/24 10:42
ED- Pulmonary Assessment Last Done: 02/24/24 10:42
Discharge Date and Time
Discharge Date/Time: 02/24/24 15:46
[2024-02-24 10:23] LABS: % Basophils 0.9 % (0-2); % Immature Granulocytes 0.1 % (0-0.5); % Lymphocytes 21.7 % (20.5-51.1); % Neutrophils 68.3 % (42.2-75.2); Absolute Basophils 0.1 10^3/uL (0-0.2); Absolute Eosinophils 0.1 10^3/uL (0-0.7); Absolute Lymphocytes 1.5 10^3/uL (1.2-3.4); Absolute Monocytes 0.5 10^3/uL (0.1-0.6); Absolute Neutrophils 4.8 10^3/uL (1.4-6.5); Hematocrit 48.1 % (39.0-52.0); Hemoglobin 16.1 g/dL (13.0-18.0); Mean Corp Hgb Conc. 33.5 g/dL (33.0-37.0); Mean Corpuscular Hgb 28.6 pg (27.0-31.0); Mean Corpuscular Volume 85.4 fL (80.0-94.0); Mean Platelet Volume 10.4 fL (7.4-10.4); Nucleated Red Blood Cells % 0 % (-); Platelet Count 146 10^3/uL (130-400); Red Blood Cell Count 5.63 10^6/uL (4.70-6.10); Red Cell Dist. Width 14.2 % (11.5-14.5)
[2024-02-24 10:41] LABS: ALT (SGPT) 24 U/L (0-50); AST (SGOT) 25 U/L (17-59); Albumin 4.6 g/dl (3.5-5.0); Alkaline Phosphatase 57 U/L (38-126); Blood Urea Nitrogen 29 mg/dl (9-20); Calcium 9.7 mg/dl (8.4-10.2); Carbon Dioxide 28 mmol/L (22-30); Chloride 103 mmol/L (98-107); Estimated Creatinine Clearance 81 ml/min; Glucose 151 mg/dl (70-99); Lipase 62 U/L (23-300); Potassium 4.7 mmol/L (3.5-5.1); Sodium 142 mmol/L (135-145); Total Bilirubin 1.2 mg/dl (0.2-1.3); Total Protein 7.5 g/dl (6.3-8.2); eGFR > 60.00
[2024-02-24] MEDS: NSS 1000 IV (10:41)
[2024-02-24] MEDS: TRANDATE 10 MG IV (11:10)
--- NOTE | 2024-02-24 13:05 | HPS.HSE ---
Addendum entered and electronically signed by Marcela Marinelli DO 02/24/24 14:56:
The patient was seen and examined. I have reviewed the patient with Lili Wheat NP, and agree with her history and physical, assessment and plan of care as per below.
BP is improving to SBP 140s, and symptoms are improving as well, pt still with some dizziness. No ataxia currently.
VSS, AF
Neuro no focal deficits noted
CV RRR/no m/r/g
Lungs CTA b/l
# HTN emergency - Persistent dizziness
-MRI brain pending
-asa/statin
-add HCTZ 12.5 mg, cont Lisinopril, prn Labetalol
-repeat labs in am
-CT head normal
-EKG with normal sinus rhythm
-Patient received IV labetalol in ER
-PT evaluated patient with no indication of vestibular issue
-Obtain MRI
-Statin aspirin
-PT/OT consult
#recent obstructive neuropathy sec to proximal left ureteral stones with proximal hydroureteronephrosis
-stent in place
-obtain UA - pending at this time, check for evidence for infection
-normal renal function
-pt missed Uro f/u appointment that was today - plan is to set pt up for surgical intervention; consider Uro appointment here vs cont OP f/u
Original Note:
Family Physician
-
Family Physician: Andrzej Vaughn
Chief Complaint
-
dizzy
History of Present Illness
68 year old male with hx HTN, DM,ureteral stones presenting to the emergency department via ems for evaluation of dizziness. Patient states that over the past few mornings he has had dizzy spells associated with nausea/vomiting.he complained being
off balance and blurry vision. The symptoms have been lasting approximately 30 minutes. Patient states that symptoms typically resolve and he feels improved throughout the rest the day. However today symptoms persisted and he called 911. felt
some pressure in head. denied chest pain, sob. denied abdominal pain. denied dysuria or hematuria.
Patient was recently discharged from hospital 6 days ago following [facility] secondary to kidney stone for which a stent was placed. He was very hypertensive at that time and has been taking lisinopril since discharge.
upon arrival he was noted in hypertensive emergency, received Labetalol in ER.admitting for further management.
Medical History
Past Medical History
Past Medical History: Reports Other
Additional Past Medical History:
Intracranial archnoid cyst
Hyperlipidemia
Vitamin D deficiency
Peripheral neuropathy
Dizziness
Hypertension
Thrombocytopenia
B12 deficiency
Melanoma neck
Past Surgical History: Reports None
Social History
Tobacco: Non-smoker
Alcohol: None
Drug: None
Personal:
Living: With Family
Family History
Family History: Not pertinent
Allergies / Home Medications
Allergies reflects when Allergies were last updated in [employer].
Home Medications with original date entered in [employer]
Allergy/Medication List:
Allergies
Allergy/AdvReac Type Severity Reaction Status Date / Time
No Known Allergies Allergy Verified 02/24/24 10:13
Home Medications
cholecalciferol (vitamin D3) 25 mcg (1,000 unit) tablet (Vitamin D3) 25 mcg PO DAILY Supplement 04/29/23
atorvastatin 40 mg tablet 40 mg PO QPM High cholesterol #30 tabs 04/30/23
cyanocobalamin (vitamin B-12) 1,000 mcg tablet 1,000 mcg PO DAILY Supplement #30 tabs 04/30/23
metformin 500 mg tablet 500 mg PO BID@0800,1700 Diabetes #120 tabs 04/30/23
aspirin 81 mg chewable tablet (Children's Aspirin) 81 mg PO QPM Blood clot prevention/tx 02/15/24
empagliflozin 10 mg tablet (Jardiance) 10 mg PO DAILY Diabetes 02/15/24
therapeutic multivitamin 1 tab PO BID Supplement 02/15/24
acetaminophen 325 mg tablet 650 mg (2 x 325 mg) PO Q4HPRN PRN mild pain/DAVIS/temp> 100.4F #0 tabs 02/18/24
lisinopril 10 mg tablet 10 mg PO DAILY Blood Pressure 02/24/24
magnesium oxide 500 mg PO SUTUTHSA Supplement 02/24/24
Review of Systems
-
Constitutional: Reports No Symptoms
EENT: Reports No Symptoms
Respiratory: Reports No Symptoms
Cardiac: Reports No Symptoms
Abdomen/GI: Reports Nausea and Vomiting
: Reports No Symptoms
Musculoskeletal: Reports No Symptoms
Skin: Reports No Symptoms
Neurological: Reports Dizzy
Endocrine: Reports No Symptoms
Hematologic/Lymphatic: Reports No Symptoms
Psych: Reports No Symptoms
Physical Exam
Vital Signs
Vital Signs
Temp Pulse Resp BP Pulse Ox
97.5 F 77 19 171/98 100
02/24/24 10:07 02/24/24 12:33 02/24/24 12:33 02/24/24 12:24 02/24/24 12:01
Physical Exam
General: Well Developed, Well Nourished and No Apparent Distress
HEENT: NormoCephalic, Moist mucous membranes and Atraumatic
Respiratory: Clear
Cardiac: S1/S2 and Regular Rhythm; No Murmur or Rub
GI: Soft, Non Tender, Non Distended and Normal Bowel Sounds; No Organomegaly
Rectal: Deferred by Provider
Musculoskeletal: No Clubbing, No Cyanosis and No Edema
Skin: No Rash
Neuro: AO x 3 and Nonfocal/grossly intact
Psych: Calm
Laboratory Results
-
02/24/24 10:14
02/24/24 10:14
Laboratory Results
Total Bilirubin 1.2 mg/dl (0.2-1.3) 02/24/24 10:14
AST 25 U/L (17-59) 12/10/24 10:14
ALT 24 U/L (0-50) 02/24/24 10:14
Alkaline Phosphatase 57 U/L (38-126) 02/24/24 10:14
Lipase 62 U/L (23-300) 02/24/24 10:14
Data Reviewed
-
CT Scan: Report Reviewed by me
Lab Data: Labs Reviewed by me
Impression/Plan
-
# Persistent dizziness/elevated BP likely from hypertension emergency versus CVA
-CT head normal
-EKG with normal sinus rhythm
-Patient received IV labetalol in ER
-PT evaluated patient with no indication of vestibular issue
-Obtain MRI
-Statin aspirin
-PT/OT consult
-lisinopril continued
-hctz added
-labetalol prn SBp>170
#recent obstructive neuropathy sec to proximal left ureteral stones with proximal hydroureteronephrosis
-stent in place
-obtain UA
#Type 2 diabetes mellitus
-Jardiance, metformin
-Insulin sliding scale
-CHo diet
#Hypercholesterolemia--Continue statin
Vitamin D deficiency
code status --Full code
DVT prophylaxis�SCDs
[2024-02-24 16:43] LABS: Glucose - Point of Care 133 mg/dl (70-99)
--- NOTE | 2024-02-24 16:43 | PTCARENOTE ---
Pt admitted from ED AOx3. denies headache, reports minimal dizziness but overall improvement since presenting to ED. LCTA, on RA. NSR. Pt cont of b&B +BSx4. No edema, +pp b/l skin CDI. CB in reach. accuchecks and monitor BP. spouse at bedside.
[2024-02-24] MEDS: ORETIC 12.5 MG PO (17:32)
[2024-02-24] MEDS: GLUCOPHAGE 500 MG PO (17:32)
[2024-02-24] MEDS: LIPITOR 40 MG PO (17:33)
[2024-02-24] MEDS: LOW STRENGTH ASPIRIN 81 MG PO (17:33)
[2024-02-24 18:12] LABS: Urine Albumin Negative (Neg - Trace); Urine Bilirubin Negative (Negative); Urine Character Clear (Clear); Urine Color Yellow; Urine Glucose 3+ (Negative); Urine Ketone Negative (Negative); Urine Leukocyte Negative (Negative); Urine Nitrite Negative (Negative); Urine Occult Blood Negative (Negative); Urine Specific Gravity 1.015 (<1.030); Urine Urobilinogen Negative (Neg - 1+)
[2024-02-24 21:37] LABS: Glucose - Point of Care 123 mg/dl (70-99)
[2024-02-25] VITALS (7 sets, daily range): BP systolic 119–160; BP diastolic 76–86; PULSE 77; O2SAT 98
--- NOTE | 2024-02-25 06:59 | W.PN.HOSP.TC ---
Today's Communication/Plan
-
cont blood pressure control
likely discharge in AM if remains stable overnight/cont to improve
Assessment / Plan
Assessment / Plan
Physical Exam
General: Well Developed, Well Nourished and No Apparent Distress
HEENT: NormoCephalic, Moist mucous membranes and Atraumatic
Respiratory: Clear
Cardiac: S1/S2 and Regular Rhythm; No Murmur or Rub
GI: Soft, Non Tender, Non Distended and Normal Bowel Sounds; No Organomegaly
Musculoskeletal: No Clubbing, No Cyanosis and No Edema
Skin: No Rash
Neuro: AO x 3 and Nonfocal/grossly intact
Psych: Calm
68M HTN, DM,ureteral stones p/w dizziness and associate severe hypertension concerning for urgency vs emergency improved with prn Labetalol and addition new bp medication HCTZ.
# Persistent dizziness/elevated BP likely from hypertension emergency/urgency
#Stroke ruled out
-CT head no acute abn's
-EKG with normal sinus rhythm
-Patient received IV labetalol in ER
-PT evaluated patient with no indication of vestibular issue
-MRI appreciated no acute abn's
-Statin aspirin
-PT/OT consult appreciated no skilled needs
-lisinopril continued
-hctz added
-labetalol prn SBp>170
#recent obstructive neuropathy sec to proximal left ureteral stones with proximal hydroureteronephrosis
-stent in place
-UA appreciated glucosuria but otherwise unremarkable
#Type 2 diabetes mellitus
-Jardiance, metformin
-Insulin sliding scale
-CHo diet
#Hypercholesterolemia--Continue statin
Vitamin D deficiency
code status --Full code
DVT prophylaxis�SCDs
Discussed with patient and patient's Mara.
I spent a total of 45 minutes with the patient or on the floor. More than 50% of this time involved counseling and coordination of care.
Anticipated Discharge: Within 24 hours
Subjective/Interval History
-
Date of Service: February 25, 2024
Seen and examined at bedside in no acute distress. Symptomatically resolved. Denies current dizziness. reports overall feeling well.
Objective Data
-
Labs:
Laboratory Results
02/25/24
06:00
Sodium Pending
Potassium Pending
Chloride Pending
Carbon Dioxide Pending
BUN Pending
Creatinine Pending
Glucose Pending
Calcium Pending
Vital Signs:
Vital Signs
Temp Pulse Resp BP Pulse Ox
97.9 F 69 18 147/76 97
02/25/24 03:41 02/25/24 03:41 02/25/24 03:41 02/25/24 03:41 02/25/24 03:41
I&O
02/23/24 02/24/24 02/25/24
06:59 06:59 06:59
Intake Total 960 / 960
Balance 960 / 960
[2024-02-25] MEDS: VITAMIN D3 (cholecalciferol) 25 MCG PO (08:09)
[2024-02-25] MEDS: FARXIGA 10 MG PO (08:09)
[2024-02-25] MEDS: GLUCOPHAGE 500 MG PO ×2 (08:09→16:44)
[2024-02-25] MEDS: VITAMIN B-12 1000 MCG PO (08:09)
[2024-02-25] MEDS: ORETIC 12.5 MG PO (08:09)
[2024-02-25] MEDS: ZESTRIL 10 MG PO (08:09)
[2024-02-25 08:14] LABS: Glucose - Point of Care 134 mg/dl (70-99)
[2024-02-25 08:38] LABS: Blood Urea Nitrogen 31 mg/dl (9-20); Calcium 9.6 mg/dl (8.4-10.2); Carbon Dioxide 26 mmol/L (22-30); Chloride 102 mmol/L (98-107); Estimated Creatinine Clearance 61 ml/min; Glucose 129 mg/dl (70-99); HDL Cholesterol 36 mg/dl; LDL Cholesterol, Calculated 57 mg/dl; Potassium 4.3 mmol/L (3.5-5.1); Sodium 141 mmol/L (135-145); Total Cholesterol 111 mg/dl (50-199); Triglyceride 94 mg/dl (10-149); Very Low Density Lipoprotein 18 mg/dl (0-30); eGFR > 60.00
[2024-02-25 11:50] LABS: Glucose - Point of Care 107 mg/dl (70-99)
[2024-02-25 16:41] LABS: Glucose - Point of Care 156 mg/dl (70-99)
[2024-02-25] MEDS: LOW STRENGTH ASPIRIN 81 MG PO (16:45)
[2024-02-25] MEDS: LIPITOR 40 MG PO (16:45)
[2024-02-25 21:24] LABS: Glucose - Point of Care 105 mg/dl (70-99)
[2024-02-26 03:35] VITALS: BP 148/84
--- NOTE | 2024-02-26 07:06 | W.PN.HOSP.TC ---
Today's Communication/Plan
-
Discharge
Assessment / Plan
Assessment / Plan
Physical Exam
General: Well Developed, Well Nourished and No Apparent Distress
HEENT: NormoCephalic, Moist mucous membranes and Atraumatic
Respiratory: Clear
Cardiac: S1/S2 and Regular Rhythm; No Murmur or Rub
GI: Soft, Non Tender, Non Distended and Normal Bowel Sounds; No Organomegaly
Musculoskeletal: No Clubbing, No Cyanosis and No Edema
Skin: No Rash
Neuro: AO x 3 and Nonfocal/grossly intact
Psych: Calm
68M HTN, DM,ureteral stones p/w dizziness and associate severe hypertension concerning for urgency vs emergency improved with prn Labetalol and addition new bp medication HCTZ.
# Persistent dizziness/elevated BP likely from hypertension emergency/urgency
#Stroke ruled out
-CT head no acute abn's
-EKG with normal sinus rhythm
-Patient received IV labetalol in ER
-PT evaluated patient with no indication of vestibular issue
-MRI appreciated no acute abn's
-Statin aspirin
-PT/OT consult appreciated no skilled needs
-lisinopril continued
-hctz added
-labetalol prn SBp>170
-Blood pressure since improved
#recent obstructive neuropathy sec to proximal left ureteral stones with proximal hydroureteronephrosis
-stent in place
-UA appreciated glucosuria but otherwise unremarkable
-cont outpt urology follow up
#Type 2 diabetes mellitus
-Jardiance, metformin
-Insulin sliding scale
-CHo diet
#Hypercholesterolemia--Continue statin
Vitamin D deficiency
code status --Full code
DVT prophylaxis�SCDs
Medically stable for discharge home with outpatient follow up recommendations.
Discussed with patient and patient's Mara.
Total Time Preparing Discharge __40 minutes including examination of the patient, summary of the hospital stay, instructions for continuing care to all relevant caregivers; and preparation of discharge records, prescriptions, and referral
forms if necessary.
Anticipated Discharge: Today
Subjective/Interval History
-
Date of Service: February 26, 2024
No acute distress. Reports feeling well. Eager to go home.
Objective Data
-
Vital Signs:
Vital Signs
Temp Pulse Resp BP Pulse Ox
97.7 F 77 20 148/84 98
02/26/24 03:35 02/26/24 03:35 02/26/24 03:35 02/26/24 03:35 02/26/24 03:35
I&O
02/25/24 02/26/24 02/27/24
06:59 06:59 06:59
Intake Total 960 / 960 480 / 480
Balance 960 / 960 480 / 480
[2024-02-26 07:10] VITALS: BP 132/79
[2024-02-26] MEDS: ORETIC 12.5 MG PO (08:03)
[2024-02-26] MEDS: FARXIGA 10 MG PO (08:03)
[2024-02-26] MEDS: VITAMIN B-12 1000 MCG PO (08:05)
[2024-02-26] MEDS: ZESTRIL 10 MG PO (08:07)
[2024-02-26] MEDS: VITAMIN D3 (cholecalciferol) 25 MCG PO (08:08)
[2024-02-26] MEDS: GLUCOPHAGE 500 MG PO (08:09)
[2024-02-26 08:14] LABS: Glucose - Point of Care 160 mg/dl (70-99)
--- NOTE | 2024-02-26 08:19 | W.DCSUMMARY ---
Discharge Summary
Discharge Data
Date of Admission: 02/24/24
Date of Discharge: 02/26/24
-
Pending Results: No
Discharge Plan
-
Patient Disposition: Home (Routine Discharge)
Discharge Diagnosis/Procedures: Hypertensive Urgency
Stroke Ruled Out
Condition: Fair
Diet: Low Cholesterol, 2 Gram Sodium and Diabetic, Carb Controlled
Activity: As tolerated
Driving Restrictions: As prior to admission
Bathing Restrictions: None
Blood Work: Please repeat BMP with primary care provider in 1 week of discharge.
Activity Restrictions/Additional Instructions:
Please follow up with your primary care provider in 1 week of discharge and keep your appointment with Urology.
Hydrochlorothiazide has been prescribed for better blood pressure control.
Please keep a daily log of your blood pressures at home, to review in follow up with primary care provider for further evaluation/management hypertension.
Please take medications as prescribed/recommended and follow up with primary care provider and/or other healthcare provider involved in your care for refills and/or further adjustment to your medication regimen as necessary.
Referrals:
Modesto Cobb MD [Active] -
Andrzej Vaughn DO [Family Provider] - in one week
Prescriptions:
New
hydrochlorothiazide 12.5 mg Tablet
12.5 mg PO DAILY 30 Days Qty: 30 0RF
Continued
cholecalciferol (vitamin D3) [Vitamin D3] 25 mcg (1,000 unit) Tablet
25 mcg PO DAILY
metformin 500 mg Tablet
500 mg PO BID@0800,1700 Qty: 120 0RF
atorvastatin 40 mg Tablet
40 mg PO QPM Qty: 30 0RF
cyanocobalamin (vitamin B-12) 1,000 mcg tablet
1,000 mcg PO DAILY Qty: 30 0RF
aspirin [Children's Aspirin] 81 mg tablet,chewable
81 mg PO QPM
therapeutic multivitamin Tablet
1 tab PO BID
Jardiance 10 mg Tablet
10 mg PO DAILY
acetaminophen 325 mg Tablet
650 mg PO Q4HPRN PRN (Reason: mild pain/DAVIS/temp> 100.4F) Qty: 0 0RF
lisinopril 10 mg tablet
10 mg PO DAILY
magnesium oxide 500 mg magnesium tablet
500 mg PO SUTUTHSA
Discharge Orders:
Discharge Patient (As Directed); Ordered 02/26/24
Ordered By: Kaveh Caldwell
Discharge Date and Time
Print Language: ITALIAN
--- NOTE | 2024-02-26 08:48 | CM ---
Addendum entered by Crissy Hamm 02/26/24 08:52:
IMM explained & signed. In chart
Original Note:
Patient seen at bedside.
IA Completed.
Lives at home in multistory home with & son, 4 steps to enter, flight steps second floor
PLOF: Independent, drives
Denies DME
Denies insecurities
Denies HH/Rehab
PCP: Andrzej Vaughn
Ph[facility]acy: [facility]
Plan: Home, no needs, declines hh
== END 2024-02-26 08:48 | disposition home or self-care (01) | DRG 305 ==
LOC: 3 WEST ACU 13:40
PROVIDERS: Registered Nurse; ADMITTING PHYSICIAN Internal Medicine; ATTENDING PHYSICIAN Internal Medicine; EMERGENCY PHYSICIAN Emergency Medicine; FAMILY PHYSICIAN Family Medicine
DX: I16.1 Hypertensive emergency (principal); E11.40 Type 2 diabetes mellitus with diabetic neuropathy, unspecified; E78.00 Pure hypercholesterolemia, unspecified; E55.9 Vitamin D deficiency, unspecified
CPT/HCPCS: 70450; 70551; 80048; 80053; 80061; 81003; 82962; 83690; 85025; 93005; 96361; 96374; 97166; 99285

== ENCOUNTER 2024-02-29 17:26 | Emergency (ER) | payer BC, SELFPAY ==
[2024-02-29 17:28] VITALS: BP 157/84
[2024-02-29 17:55] VITALS: BP 141/76
--- NOTE | 2024-02-29 18:48 | ED.GENMED ---
History of Present Illness
General
Chief Complaint: Abdominal Symptoms
Source: patient
Exam Limitations: none
Time Seen by Provider: 02/29/24 18:48
Nursing documentation reviewed up to this point in time: agreed with
History of Present Illness
History of Present Illness:
68-year-old male with past medical history of hypertension type 2 diabetes chronic cytopenia presents to the ER for evaluation of dizziness and vomiting. Patient reports he was recently admitted to the hospital February 18 and then again February
. On February 14,patient was admitted for kidney stones and had a stent placed. At that time his blood pressure was also elevated. He was admitted back in February 23 with dizziness and this was found to be related to hypertension
emergency/urgency. Patient had MRI and stroke was ruled out.
Patient reports over the weekend he has had a lot of dizziness and room spinning sensation. With this he vomited several times.
On Friday night he woke up around 12 midnight with dizziness and vomiting could barely make it to the bathroom. He does feel the room spinning sensation all the time even at rest but is worse when he changes positions. He is very nauseous and
vomiting from this. He vomited several times here in the waiting room.
Denies any trauma. no blood thinners .
Review of Systems
Review of Systems
Allergies reviewed?: Yes
All Other Systems: ROS reviewed and negative except as documented in HPI and ROS
Constitutional: Reports no symptoms
Respiratory: Reports no symptoms
Cardiac: Reports no symptoms
ABD/GI: Reports nausea and vomiting
Musculoskeletal: Reports no symptoms
Skin: Reports no symptoms
Neurological: Reports dizzy (room spinning sensation )
Psychiatric: Reports no symptoms
Phy Exam
General Physical Exam
General Presentation: no apparent distress
General age: appears stated age
General Skin: warm and dry
General Habitus: normal
General Mental: alert
General Hydration: appears well hydrated
Eye Exam
Eye Exam: PERRL, EOMI and other (+ horizontal nystagmus to the right )
Cardiovascular Exam
Cardiovascular Exam: regular rate/rhythm, no murmur and normal peripheral pulses
Pulmonary Exam
Pulmonary Exam: lungs clear and no respiratory distress
Neurological Exam
Neurological Exam: alert and oriented x3
[place] Coma Scale
Eye Opening: Spontaneous
Verbal Response: Oriented
Motor Response: Obeys Commands
GCS Total Score: 15
Cerebellar
Cerebellar Function: normal finger to nose
Course
Orders/Labs/Results
Orders:
Orders
02/29/24 19:04
Electrocardiogram (*1) Stat
Reason for Study: Other
Other Reason for Exam: neuro symptoms
Cardiac Monitoring- Treatment ONCE
EKG- Treatment ONCE
IV Insert/Care/Rem.- Treatment PRN
0.9% Sodium Chloride 1000 ml [Nss] 1,000 ml IV BOLUS
Ondansetron Injectable [Zofran] 4 mg IV NOW STA
diazePAM [Valium Injection] 2 mg IV NOW STA
02/29/24 19:28
Complete Blood Count/With Diff Urgent
Comprehensive Metabolic Panel Urgent
Abnormal Lab Results
02/29/24
19:28
MPV 10.6 H fL
(7.4-10.4)
Absolute Neuts (auto) 6.9 H 10^3/uL
(1.4-6.5)
Lymphocytes % 18.6 L %
(20.5-51.1)
Chloride 97 L mmol/L
(98-107)
BUN 50 H mg/dl
(9-20)
Creatinine 1.5 H mg/dL
(0.7-1.3)
Glucose 126 H mg/dl
(70-99)
Albumin 5.2 H g/dl
(3.5-5.0)
02/29/24 19:28
02/29/24 19:28
Vital Signs
Initial and Last Documented VS:
Initial Vital Signs
Temp Pulse Resp BP Pulse Ox
97.8 F 78 18 157/84 98
02/29/24 17:28 02/29/24 17:28 02/29/24 17:28 02/29/24 17:28 02/29/24 17:28
Last Documented Vital Signs
Temp Pulse Resp BP Pulse Ox
97.8 F 74 15 119/58 100
02/29/24 17:28 02/29/24 21:00 02/29/24 21:00 02/29/24 21:00 02/29/24 17:55
Filleter consulted with Physician
Filleter consulted with physician?: Yes
Name of Physician Consulted: Aureliano
MDM/Problems Addressed
MDM/Problems Addressed:
68 yr old male presented here today with dizziness/room spinning sensation. Pt has been here admitted twice recently for dizziness and was diagnosed with hypertensive urgency. He was ruled out for stroke had negative MRI. With patient's first
admission, he did have obstructive uropathy secondary to a proximal left ureter stone with moderate to advanced proximal hydroureteronephrosis. He did have a stent placed. He did have acute kidney injury at that time with his creatinine as high
as 4.4
Patient presents back today with room spinning sensation.
Patient has nystagmus to the right it is worse with change in position. He however is nontoxic with a normal neurological exam. Patient was given fluids and Ativan and monitored here feeling much better. He is amatory with a steady gait nystagmus
resolved. Patient did vomit several times and his BUN/creatinine is elevated however he has nontoxic and feels well enough to go home. He has a family doctor appointment tomorrow discussed for him to stay hydrated, a prescription for meclizine was
sent to his pharmacy discussed to have outpatient labs(kidney function) rechecked and to return if any worsening of s/s.
Chronic conditions affecting care:
htn, renal stone history with stent currently in place
*Pulse Oximetry
Patient hypoxic: no
*EKG
Interpreted by ED Provider?: Yes
Interpretation: normal
Heart Rate: 83
Rate: normal
Rhythm: sinus and PVC's
*Critical Care Note
Total Time (30-74mins, 75-104mins- exclusive of procedures): Not Applicable
Data Reviewed
Review of Other/Old Records Reveals: Labs, Radiology Studies and Discharge Summary
ED Attending Note
-
Portions of this chart may have been created with voice recognition software.� Occasional wrong word or��sound alike� substitutions may have occurred due to the inherent limitations of voice recognition software.
Discharge Plan
Departure
Patient Disposition: Home (Routine Discharge)
Date of Disposition: 02/29/24
Time of Disposition: 21:59
Patient with high blood pressure during this ER visit?: Yes
Condition: Fair
Covid-19: Not Applicable
Discharge Problem:
Vertigo
Instructions: Vertigo ED, BLOOD PRESSURE
Prescriptions:
New
meclizine 25 mg tablet
25 mg PO TID PRN (Reason: motion sickness) Qty: 10 0RF
No Action
cholecalciferol (vitamin D3) [Vitamin D3] 25 mcg (1,000 unit) Tablet
25 mcg PO DAILY
metformin 500 mg Tablet
500 mg PO BID@0800,1700 Qty: 120 0RF
atorvastatin 40 mg Tablet
40 mg PO QPM Qty: 30 0RF
cyanocobalamin (vitamin B-12) 1,000 mcg tablet
1,000 mcg PO DAILY Qty: 30 0RF
aspirin [Children's Aspirin] 81 mg tablet,chewable
81 mg PO QPM
therapeutic multivitamin Tablet
1 tab PO BID
Jardiance 10 mg Tablet
10 mg PO DAILY
lisinopril 10 mg tablet
10 mg PO DAILY
magnesium oxide 500 mg magnesium tablet
500 mg PO SUTUTHSA
hydrochlorothiazide 12.5 mg Tablet
12.5 mg PO DAILY 30 Days Qty: 30 0RF
Referrals:
Andrzej Vaughn, [Family Provider] -
Activity Restrictions/Additional Instructions:
As discussed a medicine called meclizine was sent to your pharmacy to take as needed for vertigo. Take only as directed. Follow-up closely with your [facility] doctor as scheduled tomorrow. Please increase fluids as you were dehydrated here. As
discussed your kidney function was elevated please have this rechecked by your family doctor in the next of days return if any worsening of symptoms.
Interventions
Interventions:
*Risk Screen - Suicide Last Done: 02/29/24 17:28
*General Assessment Last Done: 02/29/24 17:28
*Neglect/Abuse Screening Last Done: 02/29/24 17:28
ED- Fall Risk Assessment Last Done: 02/29/24 19:50
*ED COVID-19 Vaccine History Last Done: 02/29/24 19:27
*Nursing Disposition Last Done: 02/29/24 22:13
NO-Mhkwun-Ztdutuyqhi Assessment Last Done: 02/29/24 19:50
Discharge Date and Time
Discharge Date/Time: 02/29/24 22:13
Print Language: [place]
[2024-02-29 19:24] VITALS: BMI 26.8
[2024-02-29] MEDS: NSS 1000 IV (19:34)
[2024-02-29] MEDS: ZOFRAN 4 MG IV (19:35)
[2024-02-29 19:39] VITALS: BP 187/84
[2024-02-29] MEDS: VALIUM INJECTION 2 MG IV (19:40)
--- NOTE | 2024-02-29 19:45 | EDRN ---
Pt says this is his third visit in 10 days. Pt's first visit he had kidney stones and stayed in the hospital to have a stent placed. Pt felt much better however couple days later pt had dizziness and nausea. Pt says he stayed in the hospital and
had MRI, CT and a stroke was ruled out. Pt discharged 2 days ago with dx hypertensive urgency. Pt says he has been started on lisinopril and HCTZ. Pt checks his BP at home and it has been in 150-160's. Pt has not been feeling well since he
returned home and says he has had n/v and dizziness. Pt feels dizzy lying still. When this RN entered room, pt was vomiting. Pt denies headache and says his head 'feels numb.' No cp, sob, abd pain, fever/chills/cough, urinary symptoms, weakness.
[2024-02-29 19:50] LABS: % Basophils 0.5 % (0-2); % Eosinophils 1.2 % (0-6); % Immature Granulocytes 0.3 % (0-0.5); % Lymphocytes 18.6 % (20.5-51.1); % Monocytes 6.2 % (1.7-9.3); % Neutrophils 73.2 % (42.2-75.2); Absolute Basophils 0.1 10^3/uL (0-0.2); Absolute Eosinophils 0.1 10^3/uL (0-0.7); Absolute Lymphocytes 1.8 10^3/uL (1.2-3.4); Absolute Monocytes 0.6 10^3/uL (0.1-0.6); Absolute Neutrophils 6.9 10^3/uL (1.4-6.5); Hematocrit 48.2 % (39.0-52.0); Hemoglobin 16.1 g/dL (13.0-18.0); Mean Corp Hgb Conc. 33.4 g/dL (33.0-37.0); Mean Corpuscular Hgb 28.1 pg (27.0-31.0); Mean Corpuscular Volume 84.3 fL (80.0-94.0); Mean Platelet Volume 10.6 fL (7.4-10.4); Nucleated Red Blood Cells % 0 % (-); Platelet Count 144 10^3/uL (130-400); Red Blood Cell Count 5.72 10^6/uL (4.70-6.10); White Blood Cell Count 9.4 10^3/uL (4.8-10.8)
[2024-02-29 19:55] LABS: ALT (SGPT) 20 U/L (0-50); AST (SGOT) 22 U/L (17-59); Albumin 5.2 g/dl (3.5-5.0); Alkaline Phosphatase 60 U/L (38-126); Blood Urea Nitrogen 50 mg/dl (9-20); Carbon Dioxide 25 mmol/L (22-30); Chloride 97 mmol/L (98-107); Estimated Creatinine Clearance 49 ml/min; Glucose 126 mg/dl (70-99); Potassium 4.5 mmol/L (3.5-5.1); Sodium 137 mmol/L (135-145); Total Bilirubin 1.1 mg/dl (0.2-1.3); Total Protein 8.2 g/dl (6.3-8.2); eGFR 49.77
[2024-02-29 20:00] VITALS: BP 167/77
[2024-02-29 21:00] VITALS: BP 119/58
== END 2024-02-29 22:13 | disposition home or self-care (01) ==
LOC: EMR 17:26
PROVIDERS: Nurse Practitioner; EMERGENCY PHYSICIAN Emergency Medicine; FAMILY PHYSICIAN Family Medicine
DX: R42 Dizziness and giddiness (principal); R11.2 Nausea with vomiting, unspecified; E11.9 Type 2 diabetes mellitus without complications; I10 Essential (primary) hypertension; Z87.442 Personal history of urinary calculi; Z96.0 Presence of urogenital implants
CPT/HCPCS: 96374; 96375; 96361; 99284; 80053; 85025; 93005

== ENCOUNTER 2024-03-03 18:43 | Emergency (ER) | payer BC, SELFPAY ==
--- NOTE | 2024-03-03 18:51 | ED.GENMED ---
ED Provider Triage
<Abi Haney PA-C - Last Filed: 03/03/24 18:59>
-
Patient seen by provider in Triage?: Seen in Triage
Attestation: A medical screening examination has been initiated by a qualified medical provider. Based on the assessment performed at this time, it has been determined that an emergent medical condition may exist and the patient has been informed
that further medical evaluation and possible additional diagnostic testing may be needed.
HPI: 68yoM here with dizziness, vomiting, and high blood pressure. 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 Blood pressure unreadable at home. 4th ED visit for the same in the past month. Admitted from 02/23-02/25. MRI from 02/24 was
negative for stroke. Has not seen vestibular therapy.
GENERAL: Alert , in no apparent distress
EYE: No visual abnormalities.
NECK: Trachea midline
ENT: No visible abnormalities.
LUNGS: No acute respiratory distress
NEUROLOGICAL: Alert and oriented
SKIN: Skin intact. No visible changes.
MUSCULOSKELETAL: Moving extremities normally
PSYCH: Normal and appropriate interaction.
This is a medical evaluation conducted in person to initiate diagnostic evaluation and provide initial therapeutics. Please see further documentation by the treating clinician.
Cardiac labs and EKG ordered. Will defer head imaging in triage given negative MRI last week.
History of Present Illness
<Abi Haney PA-C - Last Filed: 03/03/24 18:59>
General
Chief Complaint: Dizziness
Time Seen by Provider: 03/03/24 19:40
<Tomy Barth DO - Last Filed: 03/04/24 02:19>
General
Source: patient and spouse
History of Present Illness
History of Present Illness:
68-year-old male who has had a recurrent issue with vertigo who presents after he developed severe dizziness and vomiting at home. Patient states he now feels 90% improved. Patient states he just had walked in from the outside was sitting down and
started to get dizzy again. He then vomited several times. He did try to take meclizine but suspects he vomited up. He then checked his blood pressure and it was elevated. Patient states that the symptoms are clearly worse when he moves his head
around. He states the nausea is much better. He was able to try to settle down at home before coming. He denies chest pain or neck pain. Has not been able to see the outpatient PT therapy group yet. Did recently have an admission and an MRI.
Patient does admit to some tinnitus but denies hearing loss. No motor weakness. No chest pain. No palpitations. On recent admission he had renal failure and subsequently required urologic stenting due to obstructions from kidney stones. Patient
spouse states that he was severely dizzy and vomiting.
Past History
<Tomy Barth, DO - Last Filed: 03/04/24 02:19>
Past History
ED Past Medical History: HTN, NIDDM and Other (Kidney stones)
ED Past Surgical History: Urological
Phy Exam
<Tomy Barth, DO - Last Filed: 03/04/24 02:19>
Physical Exam
Physical Exam:
CONSTITUTIONAL Patient alert and oriented to person, place and time. Well-appearing. Vital signs reviewed.
HEAD atraumatic, normocephalic.
EYES eyelids normal to inspection, Extraocular muscles intact, Conjunctiva normal, Sclera normal. No nystagmus noted
NECK normal range of motion, Trachea midline, no jugular venous distention.
RESPIRATORY CHEST No respiratory distress noted, Chest expansion equal, Bilateral breath sounds clear.
CARDIOVASCULAR regular rate and rhythm, Heart sounds normal.
ABDOMEN abdomen nontender, Bowel sounds normal. No distention.
BACK normal inspection, no obvious deformities
UPPER EXTREMITY range of motion normal, Motor strength normal, no cyanosis, no edema.
LOWER EXTREMITY range of motion normal, Motor strength normal, no cyanosis, no edema.
NEURO Speech normal, No focal motor deficits, Michael coma scale 15, Memory normal, Cranial Nerves intact to screening exam. Normal [id number]. Normal [id number].
SKIN skin warm, dry, and normal in color.
Course
<Abi Haney PA-C - Last Filed: 03/03/24 18:59>
Orders/Labs/Results
Orders:
Orders
03/03/24 18:44
Electrocardiogram (*1) Urgent
Reason for Study: Vertigo / Dizzy
EKG- Treatment ONCE
03/03/24 19:12
Complete Blood Count/With Diff Urgent
Comprehensive Metabolic Panel Urgent
Lyme Progressive Urgent
Comment: ADD ON
Troponin I Urgent
03/03/24 20:10
Meclizine [Antivert] 25 mg PO NOW STA
03/03/24 21:18
Add On- LAB Urgent
Tests Added?: lyme progressive
Abnormal Lab Results
03/03/24
19:12
MPV 11.0 H fL
(7.4-10.4)
Potassium 5.3 H mmol/L
(3.5-5.1)
BUN 48 H mg/dl
(9-20)
Glucose 127 H mg/dl
(70-99)
03/03/24 19:12
03/03/24 19:12
Vital Signs
Initial and Last Documented VS:
Initial Vital Signs
Temp Pulse Resp BP Pulse Ox
98.2 F 81 16 163/86 100
03/03/24 18:54 03/03/24 18:54 03/03/24 18:54 03/03/24 18:54 03/03/24 18:54
Last Documented Vital Signs
Temp Pulse Resp BP Pulse Ox
98.2 F 83 22 161/87 97
03/03/24 18:54 03/03/24 21:15 03/03/24 21:15 03/03/24 21:00 03/03/24 21:15
<Tomy Barth DO - Last Filed: 03/04/24 02:19>
Orders/Labs/Results
Orders:
Orders
03/03/24 18:44
Electrocardiogram (*1) Urgent
Reason for Study: Vertigo / Dizzy
EKG- Treatment ONCE
03/03/24 19:12
Complete Blood Count/With Diff Urgent
Comprehensive Metabolic Panel Urgent
Lyme Progressive Urgent
Comment: ADD ON
Troponin I Urgent
03/03/24 20:10
Meclizine [Antivert] 25 mg PO NOW STA
03/03/24 21:18
Add On- LAB Urgent
Tests Added?: lyme progressive
Abnormal Lab Results
03/03/24
19:12
MPV 11.0 H fL
(7.4-10.4)
Potassium 5.3 H mmol/L
(3.5-5.1)
BUN 48 H mg/dl
(9-20)
Glucose 127 H mg/dl
(70-99)
03/03/24 19:12
03/03/24 19:12
Vital Signs
Initial and Last Documented VS:
Initial Vital Signs
Temp Pulse Resp BP Pulse Ox
98.2 F 81 16 163/86 100
03/03/24 18:54 03/03/24 18:54 03/03/24 18:54 03/03/24 18:54 03/03/24 18:54
Last Documented Vital Signs
Temp Pulse Resp BP Pulse Ox
98.2 F 83 22 161/87 97
03/03/24 18:54 03/03/24 21:15 03/03/24 21:15 03/03/24 21:00 03/03/24 21:15
<Tomy Barth DO - Last Filed: 03/04/24 02:19>
MDM/Problems Addressed
Differential Diagnosis Includes:
M�ni�re's disease, labyrinthitis, vestibular neuritis, central vertigo,
MDM/Problems Addressed:
Acute vertigo, acute severe uncontrolled hypertension
Acute Exacerbation and/or Progression of Chronic Illness: HTN
<DO Ace Graham Last Filed: 03/04/24 02:19>
*Pulse Oximetry
Patient hypoxic: no
*EKG
Interpreted by ED Provider?: Yes
Interpretation: normal
Rate: normal
Rhythm: sinus
[place]: normal axis
Ischemia: no ischemia
*[employer] Interpretation
Rate: normal
Interpretation: normal
Rhythm: sinus
*Critical Care Note
Total Time (30-74mins, 75-104mins- exclusive of procedures): Not Applicable
Data Reviewed
Review of Other/Old Records Reveals: Progress Notes (Notes from February 2024 reviewed) and Discharge Summary (Discharge summary from February 2024 reviewed)
Source: patient and spouse
Further Testing Considered But Not Given:
Considered head CT but patient recently had CT and MRI.
<Tomy Barth DO - Last Filed: 03/04/24 02:19>
Patient Management
Escalation/DeEscalation of care consider admission/obs:
Patient feels show exam related that he wanted to go home. Given another dose of meclizine. He does have planned follow-up as an outpatient with PT. I did recommend that he have further follow-up with vestibular specialist. Given his tenderness
could consider vestibular neuritis. Lyme testing added.
ED Attending Note
<Abi Haney PA-C - Last Filed: 03/03/24 18:59>
-
Portions of this chart may have been created with voice recognition software.� Occasional wrong word or��sound alike� substitutions may have occurred due to the inherent limitations of voice recognition software.
Discharge Plan
Departure
Patient Disposition: Home (Routine Discharge)
Date of Disposition: 03/03/24
Time of Disposition: 21:09
Patient with high blood pressure during this ER visit?: Yes
Discharge Problem:
Vertigo
Instructions: Vertigo (a Type of Dizziness) (DC), BLOOD PRESSURE
Prescriptions:
New
meclizine 25 mg tablet
25 mg PO TID PRN (Reason: dizziness) Qty: 20 0RF
No Action
cholecalciferol (vitamin D3) [Vitamin D3] 25 mcg (1,000 unit) Tablet
25 mcg PO DAILY
metformin 500 mg Tablet
500 mg PO BID@0800,1700 Qty: 120 0RF
atorvastatin 40 mg Tablet
40 mg PO QPM Qty: 30 0RF
cyanocobalamin (vitamin B-12) 1,000 mcg tablet
1,000 mcg PO DAILY Qty: 30 0RF
aspirin [Children's Aspirin] 81 mg tablet,chewable
81 mg PO QPM
therapeutic multivitamin Tablet
1 tab PO BID
Jardiance 10 mg Tablet
10 mg PO DAILY
lisinopril 10 mg tablet
10 mg PO DAILY
magnesium oxide 500 mg magnesium tablet
500 mg PO SUTUTHSA
hydrochlorothiazide 12.5 mg Tablet
12.5 mg PO DAILY 30 Days Qty: 30 0RF
meclizine 25 mg tablet
25 mg PO TID PRN (Reason: motion sickness) Qty: 10 0RF
Referrals:
Eric Vieira MD [Family Provider] -
Activity Restrictions/Additional Instructions:
Please follow-up with PT as planned. Return immediately for intractable vomiting, weakness of any kind, vision changes, motor weakness or any other concerns. In addition, it may be important to follow-up with the vestibular specialist.
Other considerations: M�ni�re's disease or vestibular neuritis
Interventions
Interventions:
*Risk Screen - Suicide Last Done: 03/03/24 21:43
*General Assessment Last Done: 03/03/24 21:43
*Neglect/Abuse Screening Last Done: 03/03/24 21:43
ED- Fall Risk Assessment Last Done: 03/03/24 19:46
*ED COVID-19 Vaccine History Last Done: 03/03/24 21:43
*Nursing Disposition Last Done: 03/03/24 21:43
ED- Neurological Assessment Last Done: 03/03/24 19:46
ED- Cardiac Assessment Last Done: 03/03/24 19:46
ED Swallowing Screen Last Done: 03/03/24 20:20
Discharge Date and Time
Discharge Date/Time: 03/03/24 21:47
Print Language: MALTESE
[2024-03-03 18:54] VITALS: BP 163/86
[2024-03-03 19:24] LABS: % Basophils 0.8 % (0-2); % Immature Granulocytes 0.1 % (0-0.5); % Lymphocytes 28.3 % (20.5-51.1); % Monocytes 8.3 % (1.7-9.3); % Neutrophils 59.5 % (42.2-75.2); Absolute Basophils 0.1 10^3/uL (0-0.2); Absolute Eosinophils 0.2 10^3/uL (0-0.7); Absolute Monocytes 0.6 10^3/uL (0.1-0.6); Absolute Neutrophils 4.2 10^3/uL (1.4-6.5); Hematocrit 44.5 % (39.0-52.0); Hemoglobin 14.8 g/dL (13.0-18.0); Mean Corp Hgb Conc. 33.3 g/dL (33.0-37.0); Mean Corpuscular Hgb 27.7 pg (27.0-31.0); Mean Corpuscular Volume 83.3 fL (80.0-94.0); Nucleated Red Blood Cells % 0 % (-); Platelet Count 133 10^3/uL (130-400); Red Blood Cell Count 5.34 10^6/uL (4.70-6.10); White Blood Cell Count 7.1 10^3/uL (4.8-10.8)
[2024-03-03 19:36] LABS: ALT (SGPT) 17 U/L (0-50); AST (SGOT) 20 U/L (17-59); Alkaline Phosphatase 59 U/L (38-126); Blood Urea Nitrogen 48 mg/dl (9-20); Calcium 10.2 mg/dl (8.4-10.2); Carbon Dioxide 25 mmol/L (22-30); Chloride 100 mmol/L (98-107); Glucose 127 mg/dl (70-99); Potassium 5.3 mmol/L (3.5-5.1); Sodium 138 mmol/L (135-145); Total Bilirubin 0.6 mg/dl (0.2-1.3); Total Protein 7.9 g/dl (6.3-8.2); eGFR > 60.00
[2024-03-03 19:40] VITALS: BP 174/97
[2024-03-03 19:41] LABS: Troponin I < 0.012 ng/ml
[2024-03-03 19:45] VITALS: BMI 27.2
[2024-03-03 20:00] VITALS: BP 157/104
[2024-03-03] MEDS: ANTIVERT 25 MG PO (20:22)
[2024-03-03 20:30] VITALS: BP 167/79
[2024-03-03 21:00] VITALS: BP 161/87
[2024-03-04 11:41] LABS: Lyme Antibody Screen, EIA Negative (Negative)
== END 2024-03-03 21:47 | disposition home or self-care (01) ==
LOC: EMR 18:43
PROVIDERS: Physician Assistant; EMERGENCY PHYSICIAN Emergency Medicine; FAMILY PHYSICIAN Family Medicine
DX: R42 Dizziness and giddiness (principal); I10 Essential (primary) hypertension
CPT/HCPCS: 99284; 80053; 84484; 85025; 86618; 93005

== ENCOUNTER → 2024-03-18 10:00 | Outpatient (REF) | payer BC, SELFPAY ==
[2024-03-21 08:49] LABS: Stone Analysis Mass 15 mg
== END ==
LOC: CLAB 10:00
PROVIDERS: ATTENDING PHYSICIAN Surgery
DX: N13.2 Hydronephrosis with renal and ureteral calculous obstruction (principal)
CPT/HCPCS: 82365

== ENCOUNTER → 2024-03-31 09:44 | Outpatient (REF) | payer OTHER, SELFPAY | LOC: HWRAD 09:44 | PROVIDERS: ATTENDING PHYSICIAN Surgery; FAMILY PHYSICIAN Family Medicine | DX: N13.2 Hydronephrosis with renal and ureteral calculous obstruction (principal) | CPT/HCPCS: 74176 ==

== ENCOUNTER → 2025-01-04 08:55 | Outpatient (REF) | payer OTHER, SELFPAY | LOC: HWRAD 08:55 | PROVIDERS: ATTENDING PHYSICIAN Surgery; FAMILY PHYSICIAN Family Medicine | DX: N20.0 Calculus of kidney (principal) | CPT/HCPCS: 76775 ==